=== PATIENT | female | born 1950 | race Caucasian/White ===

== ENCOUNTER 2016-06-07 18:56 | Observation (INO) | payer MEDICARE ==
[2016-06-07] MEDS ORDERED: SODIUM CHLORIDE 0.9% 500 ML IV STA (19:20)
[2016-06-07] MEDS ORDERED: DILTIAZEM 5 MG/ML 5 ML VIAL IVP STA (19:20)
[2016-06-07] MEDS ORDERED: SODIUM CHLORIDE 0.9% 1,000 ML IV STA (19:20)
[2016-06-07] MEDS ORDERED: DILTIAZEM 125 MG in SODIUM CHLORIDE 0.9% 100 ML IV ONE (19:30)
[2016-06-07] MEDS ORDERED: ASPIRIN 81 MG CHEW PO STA (20:25)
[2016-06-07] MEDS ORDERED: NITROGLYCERIN SL TABS 0.4 MG TAB SUBLINGUAL PRN (20:25)
--- NOTE | 2016-06-07 20:25 | ED ---
General Adult HPI - General Chief complaint: Arrhythmia/Palpitations Stated complaint: high heart rate Time Seen by Provider: 06/07/16 19:08 Source: patient, family, RN notes reviewed, old records reviewed Mode of arrival: wheelchair Limitations: no limitations - History of Present Illness Initial comments: This is a 66-year-old female to the ER today. Patient coming here for evaluation of rapid heart rate not feeling well. Patient does have history of high blood pressure and diabetes. No history of smoking. No chest pain or shortness of breath and family history no sick contacts no recent illness no diarrhea, no cough or congestion, patient has had episodes like this in the past but has never been with her fully evaluated. Patient denies drugs or alcohol. - Related Data Home Medications Medication Instructions Recorded Confirmed Allergy Relief Unknown Otc 1 tab PO DAILY PRN 06/07/16 06/07/16 Aspirin [Aspirin EC] 1,000 mg PO DAILY PRN 06/07/16 06/07/16 Atorvastatin [Lipitor] 10 mg PO DAILY 06/07/16 06/07/16 Canagliflozin [Invokana] 300 mg PO DAILY 06/07/16 06/07/16 Gemfibrozil [Lopid] 600 mg PO HS 06/07/16 06/07/16 Losartan/Hydrochlorothiazide 1 tab PO DAILY 06/07/16 06/07/16 [Losartan-Hctz 50-12.5 mg Tab] Multivits-Min/Iron/FA/Lutein 1 tab PO DAILY 06/07/16 06/07/16 [Centrum Silver Women Tablet] Omeprazole [PriLOSEC] 20 mg PO DAILY 06/07/16 06/07/16 Sodium Chloride [[place]] 2 spray EA NOSTRIL DAILY PRN 06/07/16 06/07/16 glipiZIDE XL [Glucotrol Xl] 5 mg PO DAILY 06/07/16 06/07/16 metFORMIN HCL [Glucophage] 1,500 mg PO HS 06/07/16 06/07/16 Allergies Allergy/AdvReac Type Severity Reaction Status Date / Time Sulfa (Sulfonamide Allergy Rash/Hives Verified 06/07/16 19:42 Antibiotics) Review of Systems ROS Statement: Those systems with pertinent positive or pertinent negative responses have been documented in the HPI. ROS Other: All systems not noted in ROS Statement are negative. Past Medical History Past Medical History: Diabetes Mellitus, Hypertension History of Any Multi-Drug Resistant Organisms: None Reported Past Psychological History: No Psychological Hx Reported Smoking Status: Never smoker Past Alcohol Use History: None Reported Past Drug Use History: None Reported General Exam Limitations: no limitations General appearance: anxious Head exam: Present: atraumatic, normocephalic, normal inspection Eye exam: Present: normal appearance, PERRL, EOMI. Absent: scleral icterus, conjunctival injection, periorbital swelling ENT exam: Present: normal exam, mucous membranes moist Neck exam: Present: normal inspection. Absent: tenderness, meningismus, lymphadenopathy Respiratory exam: Present: normal lung sounds bilaterally. Absent: respiratory distress, wheezes, rales, rhonchi, stridor Cardiovascular Exam: Present: tachycardia, irregular rhythm, normal heart sounds. Absent: systolic murmur, diastolic murmur, rubs, gallop, clicks GI/Abdominal exam: Present: soft, normal bowel sounds. Absent: distended, tenderness, guarding, rebound, rigid Extremities exam: Present: normal inspection, full ROM, normal capillary refill. Absent: tenderness, pedal edema, joint swelling, calf tenderness Back exam: Present: normal inspection Neurological exam: Present: alert, oriented X3, CN II-XII intact Psychiatric exam: Present: normal affect, normal mood Skin exam: Present: warm, dry, intact, normal color. Absent: rash Course Vital Signs 06/07/16 06/07/16 06/07/16 19:04 19:32 19:57 Temperature 98.5 F Pulse Rate 87 145 H Pulse Rate [ 124 H Apical] Respiratory 16 18 Rate Blood Pressure 174/86 151/69 O2 Sat by Pulse 96 94 L Oximetry - Reevaluation(s) Reevaluation #1: 06/07/16 20:23 Patient having improvement with rate control, no chest pain, no shortness of breath, mainly just feeling palpitations EKG Findings - EKG Comments: EKG Findings:: EKG shows A. fib with RVR rate 154, QRS 90, QTc 467 Medical Decision Making - Medical Decision Making 66 female the ER for evaluation FH her fibrillation, history of high blood pressure and diabetes will start on anticoagulation and admission for cardiology of observation. Patient does not have heart history no chest pain. Patient having difficult to control rate, put on Cardizem drip will admit to telemetry with serial troponins - Radiology Data Radiology results: report reviewed (Chest x-ray is negative for acute disease), image reviewed Critical Care Time Critical Care Time: Yes Total Critical Care Time: 31 Disposition Clinical Impression: Atrial fibrillation with RVR, New onset a-fib Disposition: ADMITTED IP TO THIS HOSP Condition: Good
[2016-06-07 20:39] LABS: Basophils # (A) 0.1 k/uL (0-0.2); Basophils % (A) 1 %; CHCM 35.2; Eosinophils # (A) 0.2 k/uL (0-0.7); Eosinophils % (A) 2 %; HCT 46.8 % (34.0-46.0); HDW 2.96; HGB 16.3 gm/dL (11.4-16.0); Luc # (Auto) 0.25; Luc % (Auto) 2; Lymphocytes % (A) 41 %; MCH 30.8 pg (25.0-35.0); MCHC 34.8 g/dL (31.0-37.0); MCV 88.6 fL (80.0-100.0); Mean Platelet Volume 8.5; Monocytes # (A) 0.7 k/uL (0-1.0); Monocytes % (A) 5 %; Neutrophils % (A) 49 %; RBC 5.28 m/uL (3.80-5.40); RDW 13.8 % (11.5-15.5); WBC 12.3 k/uL (3.8-10.6); WBC (Perox) 12.37
[2016-06-07 20:52] LABS: ALT 56 U/L (9-52); AST 59 U/L (14-36); Alkaline Phosphatase 93 U/L (38-126); Anion Gap 16 mmol/L; Blood Urea Nitrogen 18 mg/dL (7-17); Calcium 10.5 mg/dL (8.4-10.2); Carbon Dioxide 19 mmol/L (22-30); Chloride 105 mmol/L (98-107); Glucose 208 mg/dL (74-99); Magnesium 1.8 mg/dL (1.6-2.3); Non-African American GFR(MDRD) >60 (>60 ml/min/1.73 sqM); Phosphorous 4.3 mg/dL (2.5-4.5); Potassium 4.1 mmol/L (3.5-5.1); Sodium 140 mmol/L (137-145); Total Bilirubin 0.8 mg/dL (0.2-1.3)
[2016-06-07 20:59] LABS: Creatine Kinase 134 U/L (30-135)
[2016-06-07 21:12] LABS: Creatine Kinase MB 1.9 ng/mL (0.0-2.4); Troponin I <0.012 ng/mL (0.000-0.034)
[2016-06-07 21:40] LABS: INR 1.9 (<1.1); Partial Thromboplastin Time 23.3 sec (22.0-30.0); Prothrombin Time 18.4 sec (9.0-12.0)
[2016-06-08] MEDS: METOPROLOL TARTRATE 25 MG TAB PO SCH ×3 (00:02→21:33)
[2016-06-08] MEDS: GEMFIBROZIL 600 MG TAB PO SCH ×2 (00:04→21:33)
[2016-06-08] MEDS: ATORVASTATIN 10 MG TAB PO SCH ×2 (00:04→07:54)
[2016-06-08] MEDS: metFORMIN 500 MG TAB PO SCH ×2 (00:04→21:33)
[2016-06-08 02:41] LABS: Creatine Kinase MB 1.8 ng/mL (0.0-2.4); Troponin I 0.032 ng/mL (0.000-0.034)
[2016-06-08] MEDS: PANTOPRAZOLE 40 MG TABLET PO SCH (06:37)
[2016-06-08 06:53] LABS: Basophils # (A) 0.1 k/uL (0-0.2); Basophils % (A) 1 %; CH 30.8; CHCM 35.8; Eosinophils # (A) 0.3 k/uL (0-0.7); Eosinophils % (A) 3 %; HDW 3.11; HGB 14.4 gm/dL (11.4-16.0); Luc # (Auto) 0.25; Luc % (Auto) 3; Lymphocytes % (A) 44 %; MCH 30.4 pg (25.0-35.0); MCHC 35.2 g/dL (31.0-37.0); MCV 86.5 fL (80.0-100.0); Mean Platelet Volume 6.9; Monocytes # (A) 0.5 k/uL (0-1.0); Monocytes % (A) 5 %; Neutrophils # (A) 4.1 k/uL (1.3-7.7); Neutrophils % (A) 45 %; RBC 4.74 m/uL (3.80-5.40); RDW 13.7 % (11.5-15.5); WBC 9.2 k/uL (3.8-10.6)
[2016-06-08 07:21] LABS: ALT 45 U/L (9-52); AST 38 U/L (14-36); Alkaline Phosphatase 72 U/L (38-126); Anion Gap 12 mmol/L; Blood Urea Nitrogen 15 mg/dL (7-17); Calcium 9.4 mg/dL (8.4-10.2); Carbon Dioxide 21 mmol/L (22-30); Chloride 107 mmol/L (98-107); Cholesterol 153 mg/dL (<200); Glucose 151 mg/dL (74-99); HDL Cholesterol 23 mg/dL (40-60); Non-African American GFR(MDRD) >60 (>60 ml/min/1.73 sqM); Potassium 4.1 mmol/L (3.5-5.1); Sodium 140 mmol/L (137-145); Total Bilirubin 0.9 mg/dL (0.2-1.3); Total Protein 6.8 g/dL (6.3-8.2)
[2016-06-08 07:30] LABS: Troponin I 0.032 ng/mL (0.000-0.034)
[2016-06-08 07:43] LABS: Triglycerides 538 mg/dL (<150)
[2016-06-08] MEDS: LOSARTAN-HCTZ 50-12.5 MG 1 EACH TAB PO SCH (07:53)
[2016-06-08] MEDS ORDERED: NON-FORMULARY DRUG (Canagliflozin [Invokana] 300 MG) PO SCH (09:00)
[2016-06-08] MEDS ORDERED: ASPIRIN 325 MG TAB PO SCH (09:00)
--- NOTE | 2016-06-08 10:08 | P.CRDCN ---
History of Present Illness Consult date: 06/08/16 Requesting physician: Richard Sharma Consult reason: atrial fibrillation Chief complaint: Palpitations History of present illness: This is a 66-year-old female who follows with Dr. Florence in the office. She has a known history of hypertension, hyperlipidemia, diabetes. She states that yesterday she was scraping wallpaper off in one of her rooms, all of a sudden she states she just did not feel well so she sat down. She again started to work on her wallpaper and similar symptoms returned. Her daughter who is an RN it checked her heart rate and blood pressure, heart rate was up in the 150s and was quite irregular. For this reason she came to the emergency room for further evaluation. EKG on arrival here showed atrial flutter with rapid ventricular response. Blood pressure on arrival 174/86 with a heart rate of 140. 94% on room air. WBC on arrival 12.3, hemoglobin 16.3, platelet count 172. Potassium 4.1, BUN 15, creatinine 0.4. Troponin on arrival here 0.012, 0.032, 0.032. TSH level normal. Patient states that she has been told to have an irregular heartbeat several years ago. She also states that she gets this abnormal feeling with associated palpitations off and on. According to the patient approximately one week ago, she also had some visual disturbance in her left eye, lasted only a few seconds and dissipated, she had this episode twice. At the time of my examination this morning patient is currently in a normal sinus rhythm, denies any chest pain, no palpitations, no dizziness or lightheadedness. She was not initiated on anticoagulation. Patient was on a Cardizem drip which was discontinued this morning. No chest x- ray performed. Past Medical History Past Medical History: Atrial Fibrillation, Diabetes Mellitus, Hyperlipidemia, Hypertension, Sleep Apnea/CPAP/BIPAP History of Any Multi-Drug Resistant Organisms: None Reported Additional Past Surgical History / Comment(s): left breat biospy Past Psychological History: No Psychological Hx Reported Smoking Status: Never smoker Past Alcohol Use History: None Reported Past Drug Use History: None Reported - Past Family History Mother Additional Family Medical History / Comment(s): pancreatic cancer Father Family Medical History: No Reported History Medications and Allergies Home Medications Medication Instructions Recorded Confirmed Type Allergy Relief Unknown Otc 1 tab PO DAILY PRN 06/07/16 06/07/16 History Aspirin [Aspirin EC] 1,000 mg PO DAILY PRN 06/07/16 06/07/16 History Atorvastatin [Lipitor] 10 mg PO DAILY 06/07/16 06/07/16 History Canagliflozin [Invokana] 300 mg PO DAILY 06/07/16 06/07/16 History Gemfibrozil [Lopid] 600 mg PO HS 06/07/16 06/07/16 History Losartan/Hydrochlorothiazide 1 tab PO DAILY 06/07/16 06/07/16 History [Losartan-Hctz 50-12.5 mg Tab] Multivits-Min/Iron/FA/Lutein 1 tab PO DAILY 06/07/16 06/07/16 History [Centrum Silver Women Tablet] Omeprazole [PriLOSEC] 20 mg PO DAILY 06/07/16 06/07/16 History Sodium Chloride [[place]] 2 spray EA NOSTRIL DAILY PRN 06/07/16 06/07/16 History glipiZIDE XL [Glucotrol Xl] 5 mg PO DAILY 06/07/16 06/07/16 History metFORMIN HCL [Glucophage] 1,500 mg PO HS 06/07/16 06/07/16 History Allergies Allergy/AdvReac Type Severity Reaction Status Date / Time Sulfa (Sulfonamide Allergy Rash/Hives Verified 06/07/16 19:42 Antibiotics) Physical Exam Vitals: Vital Signs Temp Pulse Pulse Resp BP BP Pulse Ox 06/08/16 07:57 78 18 06/08/16 07:22 97.9 F 78 18 112/60 06/08/16 04:00 96.3 F L 76 16 117/66 92 L 06/08/16 01:33 97.0 F L 84 18 113/77 84 L 06/07/16 22:15 98.1 F 99 16 121/63 95 06/07/16 21:30 98.1 F 99 18 121/73 96 06/07/16 20:34 122 H 16 146/71 95 Intake and Output 06/07/16 06/08/16 06/08/16 22:59 06:59 14:59 Intake Total 180 Balance 180 Intake: Oral 180 Other: Voiding Method Toilet Toilet Toilet Weight 83.3 kg PHYSICAL EXAMINATION: HEENT: [Head is atraumatic, normocephalic. Pupils equal, round. Neck is supple. There is no elevated jugular venous pressure.] HEART EXAMINATION: [Heart S1, S2 normal. No murmur or gallop heard.] CHEST EXAMINATION:[ Lungs are clear to auscultation and precussion. No chest wall tenderness is noted on palpation or with deep breathing.] ABDOMEN: [ Soft, nontender. Bowel sounds are heard. No organomegaly noted]. EXTREMITIES:[ 2+ peripheral pulses with no evidence of peripheral edema and no calf tenderness noted]. NEUROLOGIC [patient is awake, alert and oriented -3.] . Results 06/08/16 06:21 06/08/16 06:21 Cardiac Enzymes 06/08/16 06/08/16 06/08/16 Range/Units 01:38 06:21 06:21 AST 38 H (14-36) U/L CK-MB (CK-2) 1.8 2.0 (0.0-2.4) ng/mL Troponin I 0.032 0.032 (0.000-0.034) ng/mL Lipids 06/08/16 Range/Units 06:21 Triglycerides 538 H (<150) mg/dL Cholesterol 153 (<200) mg/dL HDL Cholesterol 23 L (40-60) mg/dL CBC 06/08/16 Range/Units 06:21 WBC 9.2 (3.8-10.6) k/uL RBC 4.74 (3.80-5.40) m/uL Hgb 14.4 (11.4-16.0) gm/dL Hct 41.0 (34.0-46.0) % Plt Count 202 (150-450) k/uL Comprehensive Metabolic Panel 06/08/16 Range/Units 06:21 Sodium 140 (137-145) mmol/L Potassium 4.1 (3.5-5.1) mmol/L Chloride 107 (98-107) mmol/L Carbon Dioxide 21 L (22-30) mmol/L BUN 15 (7-17) mg/dL Creatinine 0.44 L (0.52-1.04) mg/dL Glucose 151 H (74-99) mg/dL Calcium 9.4 (8.4-10.2) mg/dL AST 38 H (14-36) U/L ALT 45 (9-52) U/L Alkaline Phosphatase 72 (38-126) U/L Total Protein 6.8 (6.3-8.2) g/dL Albumin 4.0 (3.5-5.0) g/dL Current Medications Generic Name Dose Route Start Last Admin Trade Name Freq PRN Reason Stop Dose Admin Apixaban 5 mg 06/08/16 10:00 Eliquis PO BID [facility] Aspirin 81 mg 06/09/16 09:00 Aspirin PO DAILY [facility] Atorvastatin Calcium 10 mg 06/07/16 23:30 06/08/16 07:54 Lipitor PO 10 mg DAILY CARLA Administration Gemfibrozil 600 mg 06/07/16 23:30 06/08/16 00:04 Lopid PO 600 mg HS CARLA Administration Glipizide 2.5 mg 06/08/16 07:30 06/08/16 06:37 Glucotrol PO 2.5 mg AC-BID CARLA Administration HCTZ/Losartan Potassium 1 each 06/08/16 09:00 06/08/16 07:53 Hyzaar 50-12.5 PO 1 each DAILY [facility] Administration Metformin HCl 1,500 mg 06/07/16 23:30 06/08/16 00:04 Glucophage PO 1,500 mg HS [facility] Administration Metoprolol Tartrate 25 mg 06/07/16 22:00 06/08/16 07:54 Lopressor PO 25 mg BID CARLA Administration Multivitamins 1 each 06/08/16 12:00 Theragran PO DAILY@1200 [facility] Nitroglycerin 0.4 mg 06/07/16 20:25 Nitrostat SUBLINGUAL Q5M PRN Chest Pain Non-Formulary Medication 300 mg 06/08/16 09:00 Canagliflozin [Invokana] PO DAILY [facility] Pantoprazole Sodium 40 mg 06/08/16 07:30 06/08/16 06:37 Protonix PO 40 mg [id number] CARLA Administration Intake and Output 06/07/16 06/08/16 06/08/16 22:59 06:59 14:59 Intake Total 180 Balance 180 Intake: Oral 180 Other: Voiding Method Toilet Toilet Toilet Weight 83.3 kg 06/08/16 06:21 06/08/16 06:21 EKG Interpretations (text) EKG on admission showed atrial fibrillation/flutter with rapid ventricular response, EKG performed this morning shows normal sinus rhythm. Assessment and Plan Plan: Assessment and plan #1 atrial fibrillation, paroxysmal in nature. Now in normal sinus rhythm her TSH level normal #2 diabetes #3 hypertension #4 hyperlipidemia Plan We will obtain an echocardiogram with Doppler study. We will also check to see if the patient has coverage for one of the newer anticoagulants, initiate the patient on Eliquis 5 mg one tablet by mouth twice a day. Patient's CHAdsvasc Score is 4 places the patient at 8.5% stroke risk. Patient was educated regarding the importance of being on anticoagulation for stroke prevention. Lopressor 25 twice a day was added to the patient's medication regime. Further recommendations to follow. DNP note has been reviewed, I agree with a documented findings and plan of care. Patient was seen and examined.
--- NOTE | 2016-06-08 10:32 | ECHOF ---
Referral Reason:new onset afib rvr MEASUREMENTS -------- HEIGHT: 165.1 cm WEIGHT: 81.6 kg BP: 117/66 IVSd: 1.2 cm (0.6 - 1.1) LVIDd: 3.8 cm (3.9 - 5.3) LVPWd: 1.3 cm (0.6 - 1.1) IVSs: 1.7 cm LVIDs: 1.9 cm LVPWs: 1.3 cm LAESV Index (A-L): 41.08 ml/m IVSd: 3.1 cm (0.6 - 1.1) LVIDd: 0.0 cm (3.9 - 5.3) EDV(Teich): 0 ml Ao Diam: 3.1 cm (2.0 - 3.7) AV Cusp: 2.3 cm (1.5 - 2.6) LA Diam: 3.6 cm (2.7 - 3.8) MV EXCURSION: 9.718 mm (> 18.000) MV EF SLOPE: 49 mm/s (70 - 150) EPSS: 0.4 cm MV E Arturo: 1.25 m/s MV DecT: 264 ms MV A Arturo: 1.18 m/s MV E/A Ratio: 1.06 RAP: 5.00 mmHg RVSP: 37.34 mmHg FINDINGS -------- Sinus rhythm. This was a technically good study. There is mild concentric left ventricular hypertrophy. Overall left ventricular systolic function is normal with, an EF between 55 - 60 %. The right ventricle is normal in size and function. LA is severely dilated >40 ml/m2 The right atrium is normal in size. Aortic valve is trileaflet and is mildly thickened. The mitral valve leaflets are mildly thickened. Mild mitral annular calcification present. There is trace mitral regurgitation. Mild tricuspid regurgitation present. The right ventricular systolic pressure, as measured by Doppler, is 37.34mmHg. Pulmonic valve appears structurally normal. The aortic root size is normal. The pericardium is normal. CONCLUSIONS -------- 1. Sinus rhythm. 2. Mild mitral annular calcification present. 3. There is trace mitral regurgitation. 4. Mild tricuspid regurgitation present. 5. The right ventricular systolic pressure, as measured by Doppler, is 37.34mmHg. 6. Pulmonic valve appears structurally normal. 7. The aortic root size is normal. 8. The pericardium is normal. 9. This was a technically good study. 10. There is mild concentric left ventricular hypertrophy. 11. Overall left ventricular systolic function is normal with, an EF between 55 - 60 %. 12. The right ventricle is normal in size and function. 13. LA is severely dilated >40 ml/m2 14. The right atrium is normal in size. 15. Aortic valve is trileaflet and is mildly thickened. 16. The mitral valve leaflets are mildly thickened. EMR SPECIALIST: Antonella Recio RDCS
[2016-06-08] MEDS: APIXABAN 5 MG TAB PO SCH ×2 (11:18→22:36)
[2016-06-08] MEDS: MULTIVITAMINS, THERA 1 EACH TAB PO SCH (11:38)
[2016-06-08 17:05] LABS: Glucose,Whole Blood 155 mg/dL (75-99)
--- NOTE | 2016-06-08 17:15 | P.HPIM ---
History of Present Illness H&P Date: 06/08/16 Chief Complaint: Palpitations irregular heartbeat lightheadedness This is a pleasant 66-year-old lady patient of Dr. Garcias, he has underlying history of diabetes mellitus type 2, obstructive sleep apnea not compliant on CPAP machine, hypertension, hyperlipidemia patient was seen in emergency room secondary to new onset atrial flutter, atrial fibrillation with rapid ventricular rate. She presented initially with lightheadedness and dizziness which was occurring while she was putting up a wallpaper, patient rested at that time she felt better, and again she went back on her wallpapering, patient again has symptoms of weakness, her nurse daughter who lives with her checked her heart rate and was noted to be in the 140s with irregular heart rate. Patient was subsequently seen in the emergency room and was noted to be in atrial flutter heart rate in the 140s, EKG shows nonspecific EKG changes,she was started on IV Cardizem, andand thereafter converted to normal sinus rhythm patient is currently be seen by cardiology, she needs to be anticoagulated long -term, her [id number] score is 4. Patient denies any chest pain no problem other syncopal events, no motor or other neurologic deficits Review of Systems Constitutional: Reports as per HPI, Denies anorexia, Denies chills, Denies chronic headaches, Denies chronic pain, Denies daytime sleepiness, Denies fatigue, Denies fever, Denies lethargy, Denies malaise, Denies night sweats, Denies poor appetite, Denies sweats, Denies weakness, Denies weight gain, Denies weight loss Ears, nose, mouth and throat: Reports as per HPI, Denies ant. neck pain, Denies bleeding gums, Denies dental pain, Denies dysphagia, Denies epistaxis, Denies headache, Denies hoarseness, Denies mouth pain, Denies nasal congestion, Denies nasal discharge, Denies neck fullness/pressure, Denies neck lump, Denies nose pain, Denies odynophagia, Denies post-nasal drip, Denies sinus pain, Denies sinus pressure, Denies swelling in mouth, Denies swelling in throat, Denies sore throat, Denies vertigo, Denies voice changes Cardiovascular: Reports as per HPI, Reports palpitations, Reports rapid heart beat, Denies chest pain, Denies claudication, Denies decreased exercise tolerance, Denies dyspnea on exertion, Denies edema, Denies high blood pressure , Denies irregular heart beat, Denies leg edema, Denies lightheadedness, Denies orthopnea, Denies paroxysmal nocturnal dyspnea, Denies phlebitis, Denies shortness of breath, Denies syncope Respiratory: Reports as per HPI, Denies congestion, Denies cough, Denies cough with sputum, Denies dyspnea, Denies excessive sputum, Denies hemoptysis, Denies home oxygen, Denies pain, Denies pain on inspiration, Denies pleurisy, Denies respiratory infections, Denies sleep apnea, Denies snoring, Denies wheezing Gastrointestinal: Reports as per HPI, Denies abdominal pain, Denies belching, Denies bloating, Denies BRBPR, Denies change in bowel habits, Denies coffee ground emesis, Denies constipation, Denies diarrhea, Denies dyspepsia, Denies early satiety, Denies excessive gas, Denies heartburn, Denies hematemesis, Denies hematochezia, Denies indigestion, Denies jaundice, Denies lactose intolerance, Denies loss of appetite, Denies melena, Denies nausea, Denies vomiting Genitourinary: Reports as per HPI, Denies abnormal vaginal bleeding, Denies decreased libido, Denies difficulty conceiving, Denies difficulty voiding, Denies dysmenorrhea, Denies dyspareunia, Denies dysuria, Denies flank pain, Denies genital sores, Denies hematuria, Denies hot flashes, Denies incomplete emptying, Denies kidney stones, Denies menorrhagia, Denies mixed incontinence, Denies nocturia, Denies pelvic pain, Denies post void dribbling, Denies , Denies prolapse symptoms, Denies stress incontinence, Denies urge incontinence , Denies urgency, Denies urinary frequency, Denies vaginal discharge, Denies vaginal dryness, Denies vaginal itching, Denies vaginal odor Menstruation: Reports as per HPI, Denies amenorrhea, Denies amenorrhea on BC, Denies currently menstrual, Denies cycle < 21 days, Denies cycle > 35 days, Denies cycle variable, Denies menses 1-7 days, Denies menses 8 or > days, Denies menses variable, Denies period heavy, Denies period light, Denies period normal, Denies period spotting, Denies post hysterectomy, Denies postmenopausal , Denies premenarcheal Musculoskeletal: Reports as per HPI, Denies arm numbness/tingling, Denies atrophy, Denies fractures, Denies frequent falls, Denies gait dysfunction, Denies hot joints, Denies leg numbness/tingling, Denies limitation of motion, Denies loss of height, Denies low back pain, Denies morning stiffness, Denies muscle cramps, Denies muscle weakness, Denies myalgias, Denies neck pain, Denies neck stiffness, Denies prior amputations, Denies redness of joints, Denies shooting arm pain, Denies shooting leg pain Integumentary: Reports as per HPI, Denies acne, Denies boils, Denies brittle nails, Denies change in hair/nails, Denies color changes, Denies darkening of skin, Denies depigmentation, Denies dryness, Denies foot/leg ulcers, Denies growths, Denies hirsutism, Denies lesions, Denies onychomycosis, Denies pruritus , Denies rash, Denies sores, Denies striae, Denies unusual bruising, Denies wounds Neurological: Reports as per HPI, Denies aphasia, Denies ataxia, Denies balance difficulties, Denies burning pain, Denies change in mentation, Denies change in smell/taste, Denies change in speech, Denies confusion, Denies convulsions, Denies double vision, Denies gait dysfunction, Denies head injury, Denies headaches, Denies hearing difficulties, Denies lack of coordination, Denies loss of vision, Denies memory loss, Denies migraines, Denies motor disturbance, Denies numbness, Denies paralysis, Denies paresthesias, Denies seizures, Denies sensory deficit, Denies spasticity, Denies syncope, Denies tic, Denies tingling , Denies transient paralysis, Denies tremors, Denies vertigo, Denies weakness, Denies visual changes Psychiatric: Reports as per HPI, Denies anhedonia, Denies anxiety, Denies anxiety attacks, Denies change in appetite, Denies change in libido, Denies change in sleep habits, Denies confusion, Denies depression, Denies difficulty concentrating, Denies disorientation, Denies hallucinations, Denies hopelessness , Denies hypersomnia, Denies insomnia, Denies irritability, Denies memory loss, Denies mood swings, Denies paranoia, Denies sadness/tearfulness, Denies sleep disturbances, Denies suicidal ideation Endocrine: Reports as per HPI, Denies cold intolerance, Denies deepening of the voice, Denies excessive sweating, Denies excessive thirst, Denies fatigue, Denies flushing, Denies heat intolerance, Denies high blood sugars, Denies increase in ring/shoe/hat size, Denies low blood sugars, Denies nocturia, Denies palpitations, Denies polydipsia, Denies polyphagia, Denies polyuria, Denies proptosis, Denies recent glucocorticoid use, Denies thyroid mass, Denies weight change Hematologic/Lymphatic: Reports as per HPI, Denies easy bleeding, Denies easy bruising, Denies lymphadenopathy, Denies lymphedema, Denies thrombophilia Allergic/Immunologic: Reports as per HPI, Denies allergic rhinitis, Denies anaphylaxis, Denies angioedema, Denies gluten intolerance, Denies persistent infections, Denies seasonal allergies, Denies urticaria, Denies wheezing Past Medical History Past Medical History: Atrial Fibrillation, Diabetes Mellitus, Hyperlipidemia, Hypertension, Sleep Apnea/CPAP/BIPAP History of Any Multi-Drug Resistant Organisms: None Reported Additional Past Surgical History / Comment(s): left breat biospy Past Psychological History: No Psychological Hx Reported Smoking Status: Never smoker Past Alcohol Use History: None Reported Past Drug Use History: None Reported - Past Family History Mother Additional Family Medical History / Comment(s): pancreatic cancer Father Family Medical History: No Reported History Medications and Allergies Home Medications Medication Instructions Recorded Confirmed Type Allergy Relief Unknown Otc 1 tab PO DAILY PRN 06/07/16 06/07/16 History Aspirin [Aspirin EC] 1,000 mg PO DAILY PRN 06/07/16 06/07/16 History Atorvastatin [Lipitor] 10 mg PO DAILY 06/07/16 06/07/16 History Canagliflozin [Invokana] 300 mg PO DAILY 06/07/16 06/07/16 History Gemfibrozil [Lopid] 600 mg PO HS 06/07/16 06/07/16 History Losartan/Hydrochlorothiazide 1 tab PO DAILY 06/07/16 06/07/16 History [Losartan-Hctz 50-12.5 mg Tab] Multivits-Min/Iron/FA/Lutein 1 tab PO DAILY 06/07/16 06/07/16 History [Centrum Silver Women Tablet] Omeprazole [PriLOSEC] 20 mg PO DAILY 06/07/16 06/07/16 History Sodium Chloride [Crockett] 2 spray EA NOSTRIL DAILY PRN 06/07/16 06/07/16 History glipiZIDE XL [Glucotrol Xl] 5 mg PO DAILY 06/07/16 06/07/16 History metFORMIN HCL [Glucophage] 1,500 mg PO HS 06/07/16 06/07/16 History Allergies Allergy/AdvReac Type Severity Reaction Status Date / Time Sulfa (Sulfonamide Allergy Rash/Hives Verified 06/07/16 19:42 Antibiotics) Physical Exam Vitals: Vital Signs Temp Pulse Pulse Resp BP BP Pulse Ox 06/08/16 11:15 68 17 103/63 94 L 06/08/16 07:57 78 18 06/08/16 07:22 97.9 F 78 18 112/60 06/08/16 04:00 96.3 F L 76 16 117/66 92 L 06/08/16 01:33 97.0 F L 84 18 113/77 84 L 06/07/16 22:15 98.1 F 99 16 121/63 95 06/07/16 21:30 98.1 F 99 18 121/73 96 06/07/16 20:34 122 H 16 146/71 95 Intake and Output 06/07/16 06/08/16 06/08/16 22:59 06:59 14:59 Intake Total 180 Balance 180 Intake: Oral 180 Other: Voiding Method Toilet Toilet Toilet Weight 83.3 kg - Constitutional General appearance: no average body habitus, cooperative, no disheveled, no mild distress, no morbidly obese, no acute distress, obese, no severe distress, no thin - EENT Eyes: anicteric sclerae, EOMI, PERRLA, dentition normal, normal appearance ENT: no hard of hearing, hearing grossly normal, NA/AT, normal oropharynx, no other, no pharyngeal erythema, no thrush, no tonsillar exudates, no tonsillar swelling - Neck Neck: no lymphadenopathy, normal ROM, no other, no rigidity, no stridor, no thyromegaly - Respiratory Respiratory: bilateral: CTA, negative: diminished, dullness, rales, rhonchi, wheezing - Cardiovascular Rhythm: regular Heart sounds: normal: S1, S2 Abnormal Heart Sounds: no systolic murmur, no diastolic murmur, no rub, no S3 Gallop, no S4 Gallop, no click, no other - Gastrointestinal General gastrointestinal: normal bowel sounds, soft - Integumentary Integumentary: normal, normal turgor - Neurologic Neurologic: CNII-XII intact - Musculoskeletal Musculoskeletal: gait normal, strength equal bilaterally - Psychiatric Psychiatric: A&O x's 3, appropriate affect, intact judgment & insight Results CBC & Chem 7: 06/08/16 06:21 06/08/16 06:21 Labs: Abnormal Lab Results - Last 24 Hours (Table) 06/08/16 Range/Units 06:21 Carbon Dioxide 21 L (22-30) mmol/L Creatinine 0.44 L (0.52-1.04) mg/dL Glucose 151 H (74-99) mg/dL AST 38 H (14-36) U/L Triglycerides 538 H (<150) mg/dL HDL Cholesterol 23 L (40-60) mg/dL Comments: Laboratory Results WBC 9.2 k/uL (3.8-10.6) 06/08/16 06:21 RBC 4.74 m/uL (3.80-5.40) 06/08/16 06:21 Hgb 14.4 gm/dL (11.4-16.0) 06/08/16 06:21 Hct 41.0 % (34.0-46.0) 06/08/16 06:21 MCV 86.5 fL (80.0-100.0) 06/08/16 06:21 MCH 30.4 pg (25.0-35.0) 06/08/16 06:21 MCHC 35.2 g/dL (31.0-37.0) 06/08/16 06:21 RDW 13.7 % (11.5-15.5) 06/08/16 06:21 Plt Count 202 k/uL (150-450) 06/08/16 06:21 Neutrophils % 45 % 06/08/16 06:21 Lymphocytes % 44 % 06/08/16 06:21 Monocytes % 5 % 06/08/16 06:21 Eosinophils % 3 % 06/08/16 06:21 Basophils % 1 % 06/08/16 06:21 Neutrophils # 4.1 k/uL (1.3-7.7) 06/08/16 06:21 Lymphocytes # 4.0 k/uL (1.0-4.8) 06/08/16 06:21 Monocytes # 0.5 k/uL (0-1.0) 06/08/16 06:21 Eosinophils # 0.3 k/uL (0-0.7) 06/08/16 06:21 Basophils # 0.1 k/uL (0-0.2) 06/08/16 06:21 PT 18.4 sec (9.0-12.0) H 06/07/16 19:25 INR 1.9 (<1.1) 06/07/16 19:25 APTT 23.3 sec (22.0-30.0) 06/07/16 19:25 Sodium 140 mmol/L (137-145) 06/08/16 06:21 Potassium 4.1 mmol/L (3.5-5.1) 06/08/16 06:21 Chloride 107 mmol/L (98-107) 06/08/16 06:21 Carbon Dioxide 21 mmol/L (22-30) L 06/08/16 06:21 Anion Gap 12 mmol/L 06/08/16 06:21 BUN 15 mg/dL (7-17) 06/08/16 06:21 Creatinine 0.44 mg/dL (0.52-1.04) L 06/08/16 06:21 Est GFR (MDRD) Af Amer >60 (>60 ml/min/1.73 sqM) 06/08/16 06:21 Est GFR (MDRD) Non-Af >60 (>60 ml/min/1.73 sqM) 06/08/16 06:21 Glucose 151 mg/dL (74-99) H 06/08/16 06:21 POC Glucose (mg/dL) 155 mg/dL (75-99) H 06/08/16 17:03 POC Glu Medical Scheduler ID Marshall, Anu 06/08/16 17:03 Calcium 9.4 mg/dL (8.4-10.2) 06/08/16 06:21 Phosphorus 4.3 mg/dL (2.5-4.5) 06/07/16 19:25 Magnesium 1.8 mg/dL (1.6-2.3) 06/07/16 19:25 Total Bilirubin 0.9 mg/dL (0.2-1.3) 06/08/16 06:21 AST 38 U/L (14-36) H 06/08/16 06:21 ALT 45 U/L (9-52) 06/08/16 06:21 Alkaline Phosphatase 72 U/L (38-126) 06/08/16 06:21 Total Creatine Kinase 112 U/L (30-135) 06/08/16 06:21 CK-MB (CK-2) 2.0 ng/mL (0.0-2.4) 06/08/16 06:21 CK-MB (CK-2) Rel Index 1.8 06/08/16 06:21 Troponin I 0.032 ng/mL (0.000-0.034) 06/08/16 06:21 Total Protein 6.8 g/dL (6.3-8.2) 06/08/16 06:21 Albumin 4.0 g/dL (3.5-5.0) 06/08/16 06:21 Triglycerides 538 mg/dL (<150) H 06/08/16 06:21 Cholesterol 153 mg/dL (<200) 06/08/16 06:21 LDL Cholesterol, Calc mg/dL (0-99) 06/08/16 06:21 HDL Cholesterol 23 mg/dL (40-60) L 06/08/16 06:21 TSH 1.660 mIU/L (0.465-4.680) 06/07/16 19:25 Thrombosis Risk Factor Assmnt - Choose All That Apply Any of the Below Risk Factors Present?: No Each Risk Factor Represents 2 Points: Age 61-74 years Thrombosis Risk Factor Assessment Total Risk Factor Score: 2 Thrombosis Risk Factor Assessment Level: Low Risk Assessment and Plan Plan: 1. New onset atrial flutter/atrial fibrillation with rapid ventricular rate, required IV Cardizem in the emergency room, she converted back to normal sinus rhythm, patient would need to be on long-term anticoagulation secondary to her chads 2 fast score of 4, has an increased risk of CVA related to her atrial fibrillation, cardiology is currently following, factor X A inhibitors are appropriate for this patient depending on her insurance company one of them will be started during this admission to be transitioned for home use. Beta xin started 2. 2. Diabetes mellitus type 2, on oral agents, patient would have Accu-Cheks , and appropriate A1c can be done as an outpatient for routine surveillance 3. Obstructive sleep apnea not on CPAP device, patient was counseled regarding compliance to the appropriate use, patient also was counseled that a repeat sleep study can be done and a new machine can be provided this could be done as an outpatient for out the titration CPAP machine 4. Left atrial enlargement over 40 mL per M2, EF 55-60%, right ventricle systolic pressure of 37, mild LA, mild MR and aortic valve trileaflet mildly thickened 5. Hyperlipidemia on Lipitor 10 no changes made continue on low. 6. BMI of 30 patient was counseled regarding lifestyle changes and appropriate weight loss program 7. Hypertensive cardiovascular disease on losartan HCTZ 50/12.5 one daily GERD on maintenance Prilosec 20 mg daily
[2016-06-08 21:06] LABS: Glucose,Whole Blood 221 mg/dL (75-99)
[2016-06-09 00:16] VITALS: RESP 16
[2016-06-09 06:17] LABS: Glucose,Whole Blood 163 mg/dL (75-99)
[2016-06-09] MEDS: PANTOPRAZOLE 40 MG TABLET PO SCH (06:53)
[2016-06-09 07:02] LABS: Basophils # (A) 0.2 k/uL (0-0.2); Basophils % (A) 2 %; CH 30.5; CHCM 34.5; Eosinophils # (A) 0.4 k/uL (0-0.7); Eosinophils % (A) 4 %; HCT 44.2 % (34.0-46.0); HDW 2.99; HGB 14.8 gm/dL (11.4-16.0); Luc # (Auto) 0.25; Luc % (Auto) 3; Lymphocytes # (A) 4.5 k/uL (1.0-4.8); Lymphocytes % (A) 46 %; MCH 29.8 pg (25.0-35.0); MCHC 33.5 g/dL (31.0-37.0); MCV 88.9 fL (80.0-100.0); Monocytes # (A) 0.4 k/uL (0-1.0); Monocytes % (A) 4 %; Neutrophils % (A) 41 %; RBC 4.97 m/uL (3.80-5.40); RDW 13.7 % (11.5-15.5); WBC 9.8 k/uL (3.8-10.6); WBC (Perox) 9.89
[2016-06-09 07:23] VITALS: TEMP 97.8
[2016-06-09] MEDS: ATORVASTATIN 10 MG TAB PO SCH (07:24)
[2016-06-09] MEDS: APIXABAN 5 MG TAB PO SCH (07:24)
[2016-06-09] MEDS: LOSARTAN-HCTZ 50-12.5 MG 1 EACH TAB PO SCH (07:24)
[2016-06-09] MEDS: METOPROLOL TARTRATE 25 MG TAB PO SCH (07:24)
[2016-06-09 07:37] LABS: Anion Gap 13 mmol/L; Blood Urea Nitrogen 15 mg/dL (7-17); Calcium 9.7 mg/dL (8.4-10.2); Carbon Dioxide 25 mmol/L (22-30); Chloride 101 mmol/L (98-107); Glucose 160 mg/dL (74-99); Non-African American GFR(MDRD) >60 (>60 ml/min/1.73 sqM); Potassium 4.3 mmol/L (3.5-5.1); Sodium 139 mmol/L (137-145)
[2016-06-09] MEDS ORDERED: ASPIRIN 81 MG CHEW PO SCH (09:00)
[2016-06-09] MEDS: MULTIVITAMINS, THERA 1 EACH TAB PO SCH (11:05)
[2016-06-09 11:09] VITALS: BP 122/65; PULSE 70
[2016-06-09 11:49] LABS: Glucose,Whole Blood 140 mg/dL (75-99)
--- NOTE | 2016-06-09 12:20 | P.PN ---
Subjective Principal diagnosis: Atrial fibrillation This is a pleasant 66-year-old female patient with a past medical history significant for diabetes, hypertension, dyslipidemia presented to the emergency room complaining of not feeling well. The patient has been experiencing heart racing and fluttering. Also she had some visual disturbance. She was found to be in A. fib with RVR and she was started on Cardizem drip and converted to normal sinus mechanism and she has been maintaining normal sinus mechanism. She underwent an echocardiogram which showed normal ventricular systolic function without any significant valvular abnormalities. The patient was started on metoprolol and also she was started on oral anticoagulation using Eliquis. Objective - Vital Signs Vital signs: Vital Signs Temp 97.8 F 06/09/16 07:23 Pulse 70 06/09/16 11:09 Resp 16 06/09/16 11:09 BP 122/65 06/09/16 11:09 Pulse Ox 97 06/09/16 11:09 Intake & Output 06/08/16 06/09/16 06/09/16 18:59 06:59 18:59 Intake Total 718 240 Balance 718 240 Weight 118.8 kg Intake: Oral 718 240 Other: Voiding Method Toilet Toilet Toilet # Voids 2 - Constitutional General appearance: Present: no acute distress - Respiratory Respiratory: bilateral: CTA - Cardiovascular Rhythm: regular Heart sounds: normal: S1, S2 - Labs CBC & Chem 7: 06/09/16 06:15 06/09/16 06:15 Labs: Abnormal Lab Results - Last 24 Hours (Table) 06/08/16 06/08/16 06/09/16 Range/Units 17:03 21:04 06:15 Glucose 160 H (74-99) mg/dL POC Glucose (mg/dL) 155 H 221 H (75-99) mg/dL 06/09/16 06/09/16 Range/Units 06:15 11:37 Glucose (74-99) mg/dL POC Glucose (mg/dL) 163 H 140 H (75-99) mg/dL Assessment and Plan Plan: Assessment Paroxysmal atrial fibrillation Multiple comorbid conditions including diabetes, hypertension, dyslipidemia Plan The patient has been maintaining normal sinus mechanism We'll continue the current medical treatment with metoprolol and Eliquis.
--- NOTE | 2016-06-09 12:35 | P.DS ---
Providers Date of admission: 06/07/16 20:25 Expected date of discharge: 06/09/16 Attending physician: Richard Sharma Primary care physician: [facility] Course: This is a pleasant 66-year-old lady patient of Dr. Garcias, he has underlying history of diabetes mellitus type 2, obstructive sleep apnea not compliant on CPAP machine, hypertension, hyperlipidemia patient was seen in emergency room secondary to new onset atrial flutter, atrial fibrillation with rapid ventricular rate. She presented initially with lightheadedness and dizziness which was occurring while she was putting up a wallpaper, patient rested at that time she felt better, and again she went back on her wallpapering, patient again has symptoms of weakness, her nurse daughter who lives with her checked her heart rate and was noted to be in the 140s with irregular heart rate. Patient was subsequently seen in the emergency room and was noted to be in atrial flutter heart rate in the 140s, EKG shows nonspecific EKG changes,she was started on IV Cardizem, andand thereafter converted to normal sinus rhythm patient is currently be seen by cardiology, she needs to be anticoagulated long -term, her [id number] score is 4. Patient denies any chest pain no problem other syncopal events, no motor or other neurologic deficits 5/5: Patient has been seen by box maker paperboard with recommendations for eliquis 5 mg twice daily. She is on Lopressor 25 mg twice daily. Echocardiogram reveals EF 55-60%, trace mitral regurgitation, mild tricuspid regurgitation, mild concentric left ventricular hypertrophy, LA severely dilated greater than 40. She is currently in a sinus rhythm running in the 60s and 70s. Patient has been cleared for discharge by cardiology. Patient will be discharged home today in stable condition. Discharge diagnoses: 1. New onset atrial , paroxysmal 2. Diabetes mellitus type 2 3. Obstructive sleep apnea not on CPAP device, patient was counseled regarding compliance 4. Left atrial enlargement over 40 mL per M2, EF 55-60%, right ventricle systolic pressure of 37, mild FL, mild MR and aortic valve trileaflet mildly thickened 5. Hyperlipidemia 6. BMI of 30 7. Hypertensive cardiovascular disease 8. GERD Discharge plan: Return home Impression and plan of care have been directed as dictated by the signing physician. Martha Vora nurse practitioner acting as scribe for signing physician. Cc Dr. Stanton Garcias Patient Condition at Discharge: Good Plan - Discharge Summary New Discharge Prescriptions: Apixaban [Eliquis] 5 mg PO BID #180 tab Aspirin 81 mg PO DAILY #30 chewable Metoprolol Tartrate [Lopressor] 25 mg PO BID #180 tab Discharge Medication List Allergy Relief Unknown Otc 1 tab PO DAILY PRN 06/07/16 [History] Atorvastatin [Lipitor] 10 mg PO DAILY 06/07/16 [History] Canagliflozin [Invokana] 300 mg PO DAILY 06/07/16 [History] Gemfibrozil [Lopid] 600 mg PO HS 06/07/16 [History] Losartan/Hydrochlorothiazide [Losartan-Hctz 50-12.5 mg Tab] 1 tab PO DAILY 06/07 [History] Multivits-Min/Iron/FA/Lutein [Centrum Silver Women Tablet] 1 tab PO DAILY [History] Omeprazole [PriLOSEC] 20 mg PO DAILY 06/07/16 [History] Sodium Chloride [[place]] 2 spray EA NOSTRIL DAILY PRN 06/07/16 [History] glipiZIDE XL [Glucotrol XL] 5 mg PO DAILY 06/07/16 [History] metFORMIN HCL [Glucophage] 1,500 mg PO HS 06/07/16 [History] Apixaban [Eliquis] 5 mg PO BID #180 tab 06/09/16 [Rx] Aspirin 81 mg PO DAILY #30 chewable 06/09/16 [Rx] Metoprolol Tartrate [Lopressor] 25 mg PO BID #180 tab 06/09/16 [Rx] Follow up Appointment(s)/Referral(s): Lexie Florence MD [STAFF PHYSICIAN] - 2 Weeks Eugenia Marlow MD [STAFF PHYSICIAN] - 1 Week (Her cup for possible CVA related to atrial fibrillation) Stanton Garcias DO [Primary Care Provider] - 1 Week Activity/Diet/Wound Care/Special Instructions: *transportation department supervisor Eliquis from [facility] at time of discharge* Discharge Disposition: HOME SELF-CARE
== END 2016-06-09 13:33 | disposition home or self-care (01) ==
LOC: EC 18:56 → INTOOBSV 20:25 → 6SEL 20:25
PROVIDERS: ADMIT Internal Medicine Geriatric Medicine; ATTEND Internal Medicine Geriatric Medicine
DX: I48.0 Paroxysmal atrial fibrillation (principal); I48.92 Unspecified atrial flutter; I11.9 Hypertensive heart disease without heart failure; G47.33 Obstructive sleep apnea (adult) (pediatric); E78.5 Hyperlipidemia, unspecified; K21.9 Gastro-esophageal reflux disease without esophagitis; E11.9 Type 2 diabetes mellitus without complications; Z68.30 Body mass index [BMI] 30.0-30.9, adult; Z79.899 Other long term (current) drug therapy; Z79.84 Long term (current) use of oral hypoglycemic drugs; Z88.2 Allergy status to sulfonamides; Z91.19 Patient's noncompliance with other medical treatment and regimen
CPT/HCPCS: 96366 ×2; 96376; 96365; 99291; 36415; 93005; 93306; 80061; 80053 ×2; 80048; 82550 ×2; 82553 ×2; 83735; 84100; 84443; 84484 ×2; 85025 ×3; 85610; 85730; G0378 ×4

== ENCOUNTER 2016-07-07 05:38 | Observation (INO) | payer MEDICARE ==
[2016-07-07 06:19] LABS: Basophils # (A) 0.1 k/uL (0-0.2); Basophils % (A) 1 %; CH 30.9; CHCM 36.1; Eosinophils # (A) 0.5 k/uL (0-0.7); Eosinophils % (A) 3 %; HCT 44.4 % (34.0-46.0); HDW 3.22; HGB 15.8 gm/dL (11.4-16.0); Luc # (Auto) 0.19; Luc % (Auto) 1; Lymphocytes # (A) 2.7 k/uL (1.0-4.8); Lymphocytes % (A) 17 %; MCH 30.7 pg (25.0-35.0); MCHC 35.7 g/dL (31.0-37.0); MCV 86.1 fL (80.0-100.0); Mean Platelet Volume 7.1; Monocytes # (A) 0.5 k/uL (0-1.0); Monocytes % (A) 3 %; Neutrophils # (A) 11.8 k/uL (1.3-7.7); Neutrophils % (A) 75 %; RBC 5.15 m/uL (3.80-5.40); RDW 13.8 % (11.5-15.5); WBC 15.7 k/uL (3.8-10.6); WBC (Perox) 15.12
[2016-07-07 06:30] LABS: ALT 60 U/L (9-52); AST 52 U/L (14-36); Alkaline Phosphatase 90 U/L (38-126); Anion Gap 16 mmol/L; Blood Urea Nitrogen 19 mg/dL (7-17); Carbon Dioxide 23 mmol/L (22-30); Chloride 102 mmol/L (98-107); Glucose 222 mg/dL (74-99); Magnesium 1.7 mg/dL (1.6-2.3); Non-African American GFR(MDRD) >60 (>60 ml/min/1.73 sqM); Potassium 4.3 mmol/L (3.5-5.1); Sodium 141 mmol/L (137-145); Total Bilirubin 0.7 mg/dL (0.2-1.3); Total Protein 7.5 g/dL (6.3-8.2)
[2016-07-07 06:40] LABS: Partial Thromboplastin Time 21.9 sec (22.0-30.0); Prothrombin Time 10.2 sec (9.0-12.0)
[2016-07-07 06:46] LABS: Creatine Kinase 88 U/L (30-135)
--- NOTE | 2016-07-07 06:47 | ED ---
General Adult HPI - General Chief complaint: Chest Pain Stated complaint: Chest pain, neckpain Time Seen by Provider: 07/07/16 05:57 Source: patient, family, RN notes reviewed, old records reviewed Mode of arrival: wheelchair Limitations: no limitations - History of Present Illness Initial comments: This is a 66-year-old female ER for evaluation. This patient presents for evaluation of nausea, possible atypical chest pain, mild shortness of breath. Patient has recent diagnosis of A. fib, no prior cardiac evaluation. Patient does have high cholesterol. Patient is no chest pain at this time, symptoms are improved. Patient has had recent upper respiratory infection runny nose cough congestion. No fevers. No travel history. No sick contacts. She was recently hospitalized and diagnosed with atrial fibrillation, Serzone and Lopressor and anticoagulation - Related Data Home Medications Medication Instructions Recorded Confirmed Allergy Relief Unknown Otc 1 tab PO DAILY PRN 06/07/16 06/07/16 Atorvastatin [Lipitor] 10 mg PO DAILY 06/07/16 06/07/16 Canagliflozin [Invokana] 300 mg PO DAILY 06/07/16 06/07/16 Gemfibrozil [Lopid] 600 mg PO HS 06/07/16 06/07/16 Losartan/Hydrochlorothiazide 1 tab PO DAILY 06/07/16 06/07/16 [Losartan-Hctz 50-12.5 mg Tab] Multivit-Min/Iron/Folic/Lutein 1 tab PO DAILY 06/07/16 06/07/16 [Centrum Silver Women Tablet] Omeprazole [PriLOSEC] 20 mg PO DAILY 06/07/16 06/07/16 Sodium Chloride [[place]] 2 spray EA NOSTRIL DAILY PRN 06/07/16 06/07/16 glipiZIDE XL [Glucotrol XL] 5 mg PO DAILY 06/07/16 06/07/16 metFORMIN HCL [Glucophage] 1,500 mg PO HS 06/07/16 06/07/16 Previous Rx's Medication Instructions Recorded Apixaban [Eliquis] 5 mg PO BID #180 tab 06/09/16 Aspirin 81 mg PO DAILY #30 chewable 06/09/16 Metoprolol Tartrate [Lopressor] 25 mg PO BID #180 tab 06/09/16 Allergies Allergy/AdvReac Type Severity Reaction Status Date / Time Sulfa (Sulfonamide Allergy Rash/Hives Verified 07/07/16 05:48 Antibiotics) Review of Systems ROS Statement: Those systems with pertinent positive or pertinent negative responses have been documented in the HPI. ROS Other: All systems not noted in ROS Statement are negative. Past Medical History Past Medical History: Atrial Fibrillation, Diabetes Mellitus, Hyperlipidemia, Hypertension, Sleep Apnea/CPAP/BIPAP History of Any Multi-Drug Resistant Organisms: None Reported Additional Past Surgical History / Comment(s): left breat biospy Past Psychological History: No Psychological Hx Reported Smoking Status: Never smoker Past Alcohol Use History: None Reported Past Drug Use History: None Reported - Past Family History Mother Additional Family Medical History / Comment(s): pancreatic cancer Father Family Medical History: No Reported History General Exam Limitations: no limitations General appearance: alert, in no apparent distress Head exam: Present: atraumatic, normocephalic, normal inspection Eye exam: Present: normal appearance, PERRL, EOMI. Absent: scleral icterus, conjunctival injection, periorbital swelling ENT exam: Present: normal exam, mucous membranes moist Neck exam: Present: normal inspection. Absent: tenderness, meningismus, lymphadenopathy Respiratory exam: Present: normal lung sounds bilaterally. Absent: respiratory distress, wheezes, rales, rhonchi, stridor Cardiovascular Exam: Present: regular rate, normal rhythm, normal heart sounds. Absent: systolic murmur, diastolic murmur, rubs, gallop, clicks GI/Abdominal exam: Present: soft, normal bowel sounds. Absent: distended, tenderness, guarding, rebound, rigid Extremities exam: Present: normal inspection, full ROM, normal capillary refill. Absent: tenderness, pedal edema, joint swelling, calf tenderness Back exam: Present: normal inspection Neurological exam: Present: alert, oriented X3, CN II-XII intact Psychiatric exam: Present: normal affect, normal mood Skin exam: Present: warm, dry, intact, normal color. Absent: rash Course Vital Signs 07/07/16 07/07/16 05:46 06:39 Temperature 98.7 F 98.3 F Pulse Rate 82 80 Respiratory 18 18 Rate Blood Pressure 132/71 121/69 O2 Sat by Pulse 94 L 97 Oximetry - Reevaluation(s) Reevaluation #1: 07/07/16 07:19 Patient remains without chest pain at this time, no acute distress EKG Findings - EKG Comments: EKG Findings:: EKG shows normal sinus rhythm rate of 79, GA 42, QRS 74, QTc 456 Medical Decision Making - Medical Decision Making 66 female to the. ER for evaluation of arrhythmia, nausea, chest discomfort. Patient will be admitted for cardiac observation - Lab Data Result diagrams: 07/07/16 05:50 07/07/16 05:50 Lab Results 07/07/16 07/07/16 07/07/16 Range/Units 05:50 05:50 05:50 WBC 15.7 H (3.8-10.6) k/uL RBC 5.15 (3.80-5.40) m/uL Hgb 15.8 (11.4-16.0) gm/dL Hct 44.4 (34.0-46.0) % MCV 86.1 (80.0-100.0) fL MCH 30.7 (25.0-35.0) pg MCHC 35.7 (31.0-37.0) g/dL RDW 13.8 (11.5-15.5) % Plt Count 194 (150-450) k/uL Neutrophils % 75 % Lymphocytes % 17 % Monocytes % 3 % Eosinophils % 3 % Basophils % 1 % Neutrophils # 11.8 H (1.3-7.7) k/uL Lymphocytes # 2.7 (1.0-4.8) k/uL Monocytes # 0.5 (0-1.0) k/uL Eosinophils # 0.5 (0-0.7) k/uL Basophils # 0.1 (0-0.2) k/uL PT (9.0-12.0) sec INR (<1.1) APTT (22.0-30.0) sec D-Dimer (<0.60) mg/L FEU Sodium 141 (137-145) mmol/L Potassium 4.3 (3.5-5.1) mmol/L Chloride 102 (98-107) mmol/L Carbon Dioxide 23 (22-30) mmol/L Anion Gap 16 mmol/L BUN 19 H (7-17) mg/dL Creatinine 0.50 L (0.52-1.04) mg/dL Est GFR (MDRD) Af Amer >60 (>60 ml/min/1.73 sqM) Est GFR (MDRD) Non-Af >60 (>60 ml/min/1.73 sqM) Glucose 222 H (74-99) mg/dL Calcium 10.0 (8.4-10.2) mg/dL Magnesium 1.7 (1.6-2.3) mg/dL Total Bilirubin 0.7 (0.2-1.3) mg/dL AST 52 H (14-36) U/L ALT 60 H (9-52) U/L Alkaline Phosphatase 90 (38-126) U/L Total Creatine Kinase 88 (30-135) U/L CK-MB (CK-2) 1.3 (0.0-2.4) ng/mL CK-MB (CK-2) Rel Index 1.5 Troponin I <0.012 (0.000-0.034) ng/mL NT-Pro-B Natriuret Pep pg/mL Total Protein 7.5 (6.3-8.2) g/dL Albumin 4.7 (3.5-5.0) g/dL 07/07/16 07/07/16 Range/Units 05:50 05:50 WBC (3.8-10.6) k/uL RBC (3.80-5.40) m/uL Hgb (11.4-16.0) gm/dL Hct (34.0-46.0) % MCV (80.0-100.0) fL MCH (25.0-35.0) pg MCHC (31.0-37.0) g/dL RDW (11.5-15.5) % Plt Count (150-450) k/uL Neutrophils % % Lymphocytes % % Monocytes % % Eosinophils % % Basophils % % Neutrophils # (1.3-7.7) k/uL Lymphocytes # (1.0-4.8) k/uL Monocytes # (0-1.0) k/uL Eosinophils # (0-0.7) k/uL Basophils # (0-0.2) k/uL PT 10.2 (9.0-12.0) sec INR 1.0 (<1.1) APTT 21.9 L (22.0-30.0) sec D-Dimer 0.26 (<0.60) mg/L FEU Sodium (137-145) mmol/L Potassium (3.5-5.1) mmol/L Chloride (98-107) mmol/L Carbon Dioxide (22-30) mmol/L Anion Gap mmol/L BUN (7-17) mg/dL Creatinine (0.52-1.04) mg/dL Est GFR (MDRD) Af Amer (>60 ml/min/1.73 sqM) Est GFR (MDRD) Non-Af (>60 ml/min/1.73 sqM) Glucose (74-99) mg/dL Calcium (8.4-10.2) mg/dL Magnesium (1.6-2.3) mg/dL Total Bilirubin (0.2-1.3) mg/dL AST (14-36) U/L ALT (9-52) U/L Alkaline Phosphatase (38-126) U/L Total Creatine Kinase (30-135) U/L CK-MB (CK-2) (0.0-2.4) ng/mL CK-MB (CK-2) Rel Index Troponin I (0.000-0.034) ng/mL NT-Pro-B Natriuret Pep 77 pg/mL Total Protein (6.3-8.2) g/dL Albumin (3.5-5.0) g/dL - Radiology Data Radiology results: report reviewed (Chest x-ray is negative for acute disease), image reviewed Critical Care Time Critical Care Time: Yes Total Critical Care Time: 31 Disposition Clinical Impression: Chest pain, Atypical chest pain, Atrial fibrillation Disposition: ADMITTED IP TO THIS [facility] Condition: Fair Referrals: Stanton Garcias DO [Primary Care Provider] - 1-2 days
--- NOTE | 2016-07-07 06:52 | XR ---
EXAM: XR Chest, 2 Views CLINICAL HISTORY: Reason: Chest Pain TECHNIQUE: Frontal and lateral views of the chest. COMPARISON: Chest 10/25/15 FINDINGS: Lungs: Unremarkable. No consolidation. Pleural space: No pleural effusion. No pneumothorax. Heart: Unremarkable. No cardiomegaly. Mediastinum: Unremarkable. Bones/joints: Unremarkable. IMPRESSION: No acute cardiopulmonary disease.
[2016-07-07 06:58] LABS: Creatine Kinase MB 1.3 ng/mL (0.0-2.4); Troponin I <0.012 ng/mL (0.000-0.034)
[2016-07-07] MEDS ORDERED: NITROGLYCERIN SL TABS 0.4 MG TAB SUBLINGUAL PRN (07:16)
[2016-07-07 12:02] LABS: Glucose,Whole Blood 150 mg/dL (75-99)
[2016-07-07 12:10] LABS: Creatine Kinase 75 U/L (30-135)
[2016-07-07 12:22] LABS: Creatine Kinase MB 1.1 ng/mL (0.0-2.4); Troponin I <0.012 ng/mL (0.000-0.034)
--- NOTE | 2016-07-07 12:47 | P.HPIM ---
History of Present Illness H&P Date: 07/07/16 Chief Complaint: Chest pain This is a pleasant 66-year-old lady patient of Dr. Garcias and Dr. Florence is her staff radiographer. She has a medical history of diabetes mellitus type 2, obstructive sleep apnea not compliant on CPAP machine, hypertension, hyperlipidemia recently diagnosed with paroxysmal atrial fibrillation and she was admitted to the hospital on 06/11/2016 she was started on Eliquis 5 minute gram orally twice every day along with metoprolol and she was discharged home. Patient went inside and dismounted office about a week ago and everything was fine patient woke up today at around 3:00 in the morning complaining of chest pressure associated with increased nausea felt like she is going to belch and patient was worried about she ended up talking to her daughter who she lives with and they came to the ER at [facility] where she had an EKG that showed normal sinus rhythm with no acute ischemic changes, chest x-ray was normal, patient stated that she had an upper respiratory tract infection about a week or 2 weeks ago and she has been complaining of increased coughing and some phlegm production that is yellowish. The patient was seen and examined and the her laboratory evaluation were reviewed, patient does appear to have bronchitis at this time, she would need to be on oral antibiotic in the form of Z-Rj 1. Patient was admitted to the hospital for eval you should by cardiology patient did have a stress test through Dr. Florence she believes about 2 years ago. Review of Systems Constitutional: Denies chronic headaches, Denies malaise, Denies weight gain, Denies weight loss Eyes: denies blurred vision, denies bulging eye, denies decreased vision, denies diplopia Ears: deny: decreased hearing Ears, nose, mouth and throat: Denies dysphagia, Denies neck lump, Denies sore throat, Denies vertigo Cardiovascular: Reports chest pain, Denies decreased exercise tolerance, Denies edema, Denies high blood pressure, Denies paroxysmal nocturnal dyspnea, Denies phlebitis, Denies rapid heart beat, Denies shortness of breath Respiratory: Reports cough, Reports cough with sputum, Denies congestion, Denies home oxygen, Denies sleep apnea, Denies snoring, Denies wheezing Gastrointestinal: Denies abdominal pain, Denies bloating, Denies BRBPR, Denies excessive gas, Denies melena, Denies nausea, Denies vomiting Genitourinary: Denies dysuria, Denies hematuria Menstruation: Reports postmenopausal Musculoskeletal: Denies myalgias Musculoskeletal: absent: ankle pain, ankle stiffness, ankle swelling, elbow pain , elbow stiffness, elbow swelling, foot pain, foot stiffness, foot swelling, hand pain, hand stiffness, hand swelling, hip pain, hip stiffness, hip swelling , knee pain, knee stiffness, knee swelling, shoulder pain, shoulder stiffness, shoulder swelling, wrist pain, wrist stiffness, wrist swelling Integumentary: Denies pruritus, Denies rash Neurological: Denies numbness, Denies weakness Psychiatric: Denies anxiety, Denies depression Endocrine: Denies fatigue, Denies weight change Past Medical History Past Medical History: Atrial Fibrillation, Atrial Flutter, Diabetes Mellitus, GERD/Reflux, Hyperlipidemia, Hypertension, Sleep Apnea/CPAP/BIPAP Additional Past Medical History / Comment(s): Pt admitted to [facility] 06/07/16 with Afib/flutter with RVR converted with cardizem, LA severely dilated. Other HX: NORMAN-has a CPAP but does not use, NIDDM type II. History of Any Multi-Drug Resistant Organisms: None Reported Past Surgical History: Breast Surgery Additional Past Surgical History / Comment(s): left breat biospy-benign, colonoscopy-normal, D&C Past Anesthesia/Blood Transfusion Reactions: No Reported Reaction Past Psychological History: No Psychological Hx Reported Additional Psychological History / Comment(s): Pt has an adult tariq who resides with her. She is independent. She has a CPAP but does not use it. Smoking Status: Never smoker Past Alcohol Use History: None Reported Past Drug Use History: None Reported - Past Family History Mother Family Medical History: Cancer Additional Family Medical History / Comment(s): Mother at age 32 from pancreatic cancer Father Family Medical History: No Reported History Additional Family Medical History / Comment(s): She does not know father history. Daughter(s) Additional Family Medical History / Comment(s): Patient has one son and one daughter with no major medical problems. Patient was an only child. Medications and Allergies Home Medications Medication Instructions Recorded Confirmed Type Allergy Relief Unknown Otc 1 tab PO DAILY PRN 06/07/16 07/07/16 History Atorvastatin [Lipitor] 10 mg PO DAILY 06/07/16 07/07/16 History Canagliflozin [Invokana] 300 mg PO DAILY 06/07/16 07/07/16 History Gemfibrozil [Lopid] 600 mg PO HS 06/07/16 07/07/16 History Losartan/Hydrochlorothiazide 1 tab PO DAILY 06/07/16 07/07/16 History [Losartan-Hctz 50-12.5 mg Tab] Multivit-Min/Iron/Folic/Lutein 1 tab PO DAILY 06/07/16 07/07/16 History [Centrum Silver Women Tablet] Omeprazole [PriLOSEC] 20 mg PO DAILY 06/07/16 07/07/16 History Sodium Chloride [[place]] 2 spray EA NOSTRIL DAILY PRN 06/07/16 07/07/16 History metFORMIN HCL [Glucophage] 1,500 mg PO HS 06/07/16 07/07/16 History glipiZIDE XL [Glucotrol Xl] 10 mg PO DAILY 07/07/16 07/07/16 History Allergies Allergy/AdvReac Type Severity Reaction Status Date / Time Sulfa (Sulfonamide Allergy Rash/Hives Verified 07/07/16 07:44 Antibiotics) Physical Exam Vitals: Vital Signs Temp Pulse Pulse Resp BP BP Pulse Ox 07/07/16 08:25 98.1 F 78 16 119/67 95 07/07/16 08:20 98.0 F 78 16 117/65 07/07/16 07:00 98.6 F 80 16 109/67 100 07/07/16 06:39 98.3 F 80 18 121/69 97 07/07/16 05:46 98.7 F 82 18 132/71 94 L Intake and Output 07/06/16 07/07/16 07/07/16 22:59 06:59 14:59 Other: Weight 82.1 kg 82.5 kg Patient Weight 07/08/16 06:59 Weight 82.5 kg - Constitutional General appearance: no acute distress - EENT Eyes: anicteric sclerae, EOMI, PERRLA, no ptosis, no scleral icterus, normal appearance ENT: hearing grossly normal, NA/AT, normal oropharynx, no thrush Ears: bilateral: normal - Neck Neck: no lymphadenopathy, normal ROM, no rigidity, no stridor, no thyromegaly Carotids: bilateral: upstroke normal Thyroid: bilateral: normal size - Respiratory Respiratory: bilateral: diminished, negative: dullness, rales, rhonchi, wheezing , prolonged expiration - Cardiovascular Rhythm: regular Heart sounds: normal: S1, S2 Abnormal Heart Sounds: no systolic murmur, no S3 Gallop, no S4 Gallop, no click - Gastrointestinal General gastrointestinal: normal bowel sounds, soft, no splenomegaly, no tenderness, no umbilical hernia, no ventral hernia - Integumentary Integumentary: normal, normal turgor - Neurologic Neurologic: CNII-XII intact - Musculoskeletal Musculoskeletal: strength equal bilaterally - Psychiatric Psychiatric: A&O x's 3, appropriate affect, intact judgment & insight Results CBC & Chem 7: 07/07/16 05:50 07/07/16 05:50 Labs: Abnormal Lab Results - Last 24 Hours (Table) 07/07/16 07/07/16 07/07/16 Range/Units 05:50 05:50 05:50 WBC 15.7 H (3.8-10.6) k/uL Neutrophils # 11.8 H (1.3-7.7) k/uL APTT 21.9 L (22.0-30.0) sec BUN 19 H (7-17) mg/dL Creatinine 0.50 L (0.52-1.04) mg/dL Glucose 222 H (74-99) mg/dL AST 52 H (14-36) U/L ALT 60 H (9-52) U/L Thrombosis Risk Factor Assmnt - DVT/VTE Prophylaxis DVT/VTE Prophylaxis: Pharmacologic Prophylaxis ordered, Mechanical Prophylaxis ordered - Choose All That Apply Any of the Below Risk Factors Present?: Yes Each Factor Represents 1 point: Obesity (BMI >25) Other Risk Factors: Yes Each Risk Factor Represents 2 Points: Age 61-74 years Other congenital or acquired thrombophilia - If yes, enter type in comment: No Thrombosis Risk Factor Assessment Total Risk Factor Score: 3 Thrombosis Risk Factor Assessment Level: Moderate Risk Assessment and Plan Plan: Assessment and plan: 1. Chest pain likely noncardiac due to acute bronchitis. Patient does have a few risk factors for CAD. We will admit the patient to the hospital, serial enzymes, she will be started on Zithromax 500 mg orally once every day for 3 days, Mucinex 600 mg orally twice every day for 10 days, patient is to see cardiology and possibly cardiac testing as an outpatient. 2. Paroxysmal atrial fibrillation. Currently in sinus rhythm. Continue Eliquis 5 mg orally twice every day and metoprolol 25 mg orally twice every day. 3. Hyperlipidemia. Discussed with the patient low fat low cholesterol diet and exercise and weight loss, recommended for the patient to switch gemfibrozil to fenofibrate 160 mg orally once every day and to continue with Lipitor 10 mg orally once every day and add Vascepa 2 g orally twice every day, and follow-up with lipid profile in about 4-6 weeks. 4. Elevated liver function tests thought to be due to fatty liver. We'll check ultrasound of the liver, continue patient on Lipitor and gemfibrozil for now . 5. Diabetes mellitus type 2. Continue CCA 1800 diet, continue glipizide 5 mg orally twice every day, metformin 1500 mg at bedtime, patient is also on Invokana 300 mg orally once every day. BGM once every day, total life style changes and risk factor modifications. 6. Obesity with obstructive sleep apnea. Continue CPAP. 7. GERD. Continue Protonix 40 mg orally once every day. 8. Patient is medically stable to be discharged from medical standpoint as to follow-up with cardiology as an outpatient. 9. Full code. 10. Observation.
[2016-07-07] MEDS: INSULIN LISPRO (humaLOG) 300 UNIT/3 ML VIAL SQ SCH ×3 (13:58→20:47)
[2016-07-07 14:07] LABS: Hemoglobin A1C 7.1 % (4.2-6.1)
[2016-07-07] MEDS ORDERED: ACETAMINOPHEN TAB 325 MG TAB PO PRN (16:20)
[2016-07-07 16:28] LABS: Appearance,Urine Clear (Clear); Bilirubin,Urine Negative (Negative); Glucose,Urine (UA) 4+ (Negative); Ketones,Urine 1+ (Negative); Leukocyte Esterase,Urine Negative (Negative); Nitrite,Urine Negative (Negative); Protein,Urine Negative (Negative); Specific Gravity,Urine 1.031 (1.001-1.035); UA Billing (MACRO vs. MICRO) CHEM; Urobilinogen,Urine <2.0 mg/dL (<2.0)
[2016-07-07 16:52] LABS: Glucose,Whole Blood 123 mg/dL (75-99)
[2016-07-07] MEDS: AZITHROMYCIN 500 MG TAB PO SCH (17:29)
[2016-07-07 18:33] LABS: Creatine Kinase 71 U/L (30-135)
[2016-07-07 18:42] LABS: Creatine Kinase MB 0.9 ng/mL (0.0-2.4); Troponin I <0.012 ng/mL (0.000-0.034)
[2016-07-07 20:20] LABS: Glucose,Whole Blood 170 mg/dL (75-99)
[2016-07-07] MEDS: APIXABAN 5 MG TAB PO SCH (20:47)
[2016-07-07] MEDS: METOPROLOL TARTRATE 25 MG TAB PO SCH (20:47)
[2016-07-07] MEDS ORDERED: metFORMIN 500 MG TAB PO SCH (21:00)
[2016-07-07] MEDS ORDERED: GEMFIBROZIL 600 MG TAB PO SCH (21:00)
[2016-07-07 23:42] LABS: Cholesterol 192 mg/dL (<200); HDL Cholesterol 26 mg/dL (40-60); Triglycerides 475 mg/dL (<150)
[2016-07-08 07:01] LABS: Glucose,Whole Blood 189 mg/dL (75-99)
[2016-07-08] MEDS ORDERED: PANTOPRAZOLE 40 MG TABLET PO SCH (07:30)
[2016-07-08 08:26] VITALS: BP 116/68; PULSE 70; RESP 16; TEMP 97.9
[2016-07-08] MEDS: INSULIN LISPRO (humaLOG) 300 UNIT/3 ML VIAL SQ SCH (08:36)
[2016-07-08] MEDS ORDERED: LOSARTAN-HCTZ 50-12.5 MG 1 EACH TAB PO SCH (09:00)
[2016-07-08] MEDS ORDERED: ASPIRIN 325 MG TAB PO SCH (09:00)
[2016-07-08] MEDS ORDERED: glipiZIDE 5 MG TAB PO SCH (09:00)
[2016-07-08] MEDS ORDERED: Canagliflozin [Invokana] 300 MG PO SCH (09:00)
[2016-07-08] MEDS ORDERED: ATORVASTATIN 10 MG TAB PO SCH (09:00)
--- NOTE | 2016-07-08 09:20 | CONS ---
DATE OF CONSULTATION: CHIEF COMPLAINT: Chest pain. Jennifer is a 66-year-old lady with history of paroxysmal atrial fibrillation, hypertension, dyslipidemia, [id number] diabetes who presented to the hospital with chest pain. She describes as a sharp precordial pain without definite radiation to neck, arm or back and with unrelated to exertion and associated with diaphoresis. Since admission, she has remained symptom-free and has had 3 sets of cardiac enzymes that have all been within normal limits. Given the atypical nature of her symptoms I think she is stable. Normal EKG negative cardiac enzymes. She is stable to be discharged home and outpatient follow-up pursued through Dr. Florence's office. The patient already has a stress test scheduled for the next 1 to 2 weeks. Past medical history is significant for hypertension, diabetes, dyslipidemia. Medications include: 1. Glucotrol XL 10 daily. 2. Metformin. 3. Prilosec. 4. Lopressor 25 b.i.d. 5. Losartan. 6. Lopid. 7. Lipitor. 8. Eliquis 5 b.i.d. ALLERGIC TO SULFA. Family history is negative for premature coronary artery disease. SOCIAL HISTORY: Negative for current smoking, ETOH abuse or drug abuse. REVIEW OF SYSTEMS: HEENT: Unremarkable. CARDIAC: As described above. RESPIRATORY: Negative. GI: Negative. GENITOURINARY: Negative. MUSCULOSKELETAL: Negative. Dermatology: Negative. Oncological: Negative. The rest of the system review is not relevant. On exam, comfortable at rest. Vital signs are stable. There is no jugular venous distention. Carotid upstroke is normal. There is no bruit. Chest is clear to auscultation and percussion. Heart exam reveals first and second heart sounds. No gallop. No murmur, no rub. ABDOMEN: Soft, nontender. Exam of extremities did not reveal edema. Peripheral pulses are felt. LEAD DRIVER exam did not reveal focal neurological deficits. ASSESSMENT: 1. Chest pain atypical, exact etiology is unclear equivocal for ischemia. 2. Paroxysmal atrial fibrillation. PLAN: The patient is symptom free at the time of my evaluation, she is stable to be discharged home, already has an outpatient stress test scheduled which she is going to keep.
[2016-07-08] MEDS: AZITHROMYCIN 500 MG TAB PO SCH (09:53)
[2016-07-08] MEDS: APIXABAN 5 MG TAB PO SCH (09:53)
[2016-07-08] MEDS: METOPROLOL TARTRATE 25 MG TAB PO SCH (09:54)
--- NOTE | 2016-07-08 09:54 | US ---
EXAMINATION TYPE: US liver DATE OF EXAM: 07/08/2016 COMPARISON: CLINICAL HISTORY: Fatty liver. elevated enzymes, NPO EXAM MEASUREMENTS: Liver Length: 18.2 cm Gallbladder Wall: 0.2 cm CHD: 0.4 cm Right Kidney: 12.4 x 6.3 x 6.2 cm Pancreas: Echogenic. Tail obscured by overlying bowel gas Liver: Increased attenuation, decreased visualization of vessels suggestive of fatty infiltrate. En larged. Gallbladder: wnl Evidence for sonographic Avina's sign: neg CBD: wnl Right Kidney: Medial septated lesion = 3.6 x 3.3 x 2.7 cm with 0.5 cm echogenic focus with shadowing . IMPRESSION: 1. Fatty liver. 2. Nonspecific complex lesion right kidney
--- NOTE | 2016-07-08 11:02 | P.DS ---
Providers Date of admission: 07/07/16 07:17 Expected date of discharge: 07/08/16 Attending physician: Richard Sharma Consults: 07/07/16 07:17 Consult Physician Urgent Consulting Provider: Collin Mckinney Consult Reason/Comments: cp Do you want consulting provider notified?: Yes Primary care physician: [facility] Course: This is a pleasant 66-year-old lady patient of Dr. Garcias and Dr. Florence is her garage attendant. She has a medical history of diabetes mellitus type 2, obstructive sleep apnea not compliant on CPAP machine, hypertension, hyperlipidemia recently diagnosed with paroxysmal atrial fibrillation and she was admitted to the hospital on 06/11/2016 she was started on Eliquis 5 minute gram orally twice every day along with metoprolol and she was discharged home. Patient went inside and dismounted office about a week ago and everything was fine patient woke up today at around 3:00 in the morning complaining of chest pressure associated with increased nausea felt like she is going to belch and patient was worried about she ended up talking to her daughter who she lives with and they came to the ER at [facility] where she had an EKG that showed normal sinus rhythm with no acute ischemic changes, chest x-ray was normal, patient stated that she had an upper respiratory tract infection about a week or 2 weeks ago and she has been complaining of increased coughing and some phlegm production that is yellowish. The patient was seen and examined and the her laboratory evaluation were reviewed, patient does appear to have bronchitis at this time, she would need to be on oral antibiotic in the form of Z-Rj 1. Patient was admitted to the hospital for eval you should by cardiology patient did have a stress test through Dr. Florence she believes about 2 years ago. 07/08: Liver ultrasound reveals fatty liver. Nonspecific complex lesion in the right kidney. Patient has been seen by Dr. Luana Layton with recommendations for follow-up with scheduled stress testing. Patient denies any complaints today. Her cough is better. She will be discharged home in stable condition. Discharge diagnoses: 1. Chest pain likely noncardiac due to acute bronchitis. 2. Paroxysmal atrial fibrillation. 3. Hyperlipidemia. 4. Elevated liver function tests due to fatty liver. 5. Diabetes mellitus type 2. 6. Obesity with obstructive sleep apnea. 7. GERD. Discharge plan: Return home Impression and plan of care have been directed as dictated by the signing physician. Martha Vora nurse practitioner acting as scribe for signing physician. Cc: Dr. Stanton Garcias Patient Condition at Discharge: Good Plan - Discharge Summary New Discharge Prescriptions: New Aspirin EC [Ecotrin Low Dose] 81 mg PO DAILY #30 tablet. Azithromycin [Zithromax] 500 mg PO DAILY #5 tab Continue Sodium Chloride [[place]] 2 spray EA NOSTRIL DAILY PRN PRN Reason: Allergy Symptoms Losartan/Hydrochlorothiazide [Losartan-Hctz 50-12.5 mg Tab] 1 tab PO DAILY Canagliflozin [Invokana] 300 mg PO DAILY metFORMIN HCL [Glucophage] 1,500 mg PO HS Omeprazole [PriLOSEC] 20 mg PO DAILY Atorvastatin [Lipitor] 10 mg PO DAILY Multivit-Min/Iron/Folic/Lutein [Centrum Silver Women Tablet] 1 tab PO DAILY Gemfibrozil [Lopid] 600 mg PO HS Allergy Relief Unknown Otc 1 tab PO DAILY PRN PRN Reason: Allergy Symptoms Apixaban [Eliquis] 5 mg PO BID #180 tab Metoprolol Tartrate [Lopressor] 25 mg PO BID #180 tab glipiZIDE XL [Glucotrol XL] 10 mg PO DAILY Discharge Medication List Allergy Relief Unknown Otc 1 tab PO DAILY PRN 06/07/16 [History] Atorvastatin [Lipitor] 10 mg PO DAILY 06/07/16 [History] Canagliflozin [Invokana] 300 mg PO DAILY 06/07/16 [History] Gemfibrozil [Lopid] 600 mg PO HS 06/07/16 [History] Losartan/Hydrochlorothiazide [Losartan-Hctz 50-12.5 mg Tab] 1 tab PO DAILY 06/07 [History] Multivit-Min/Iron/Folic/Lutein [Centrum Silver Women Tablet] 1 tab PO DAILY 04/21 [History] Omeprazole [PriLOSEC] 20 mg PO DAILY 06/07/16 [History] Sodium Chloride [[place]] 2 spray EA NOSTRIL DAILY PRN 06/07/16 [History] metFORMIN HCL [Glucophage] 1,500 mg PO HS 06/07/16 [History] Apixaban [Eliquis] 5 mg PO BID #180 tab 06/09/16 [Rx] Metoprolol Tartrate [Lopressor] 25 mg PO BID #180 tab 06/09/16 [Rx] glipiZIDE XL [Glucotrol XL] 10 mg PO DAILY 07/07/16 [History] Aspirin EC [Ecotrin Low Dose] 81 mg PO DAILY #30 tablet. 07/08/16 [Rx] Azithromycin [Zithromax] 500 mg PO DAILY #5 tab 07/08/16 [Rx] Follow up Appointment(s)/Referral(s): Stanton Garcias DO [Primary Care Provider] - 1-2 days Patient Instructions/Handouts: Chest Pain (DC) Activity/Diet/Wound Care/Special Instructions: Keep stress test as scheduled and follow up with Dr Florence as planned. Discharge Disposition: HOME SELF-CARE
== END 2016-07-08 10:55 | disposition home or self-care (01) ==
LOC: EC 05:38 → 3OBS 07:17
PROVIDERS: ADMIT Internal Medicine Geriatric Medicine; ATTEND Internal Medicine Geriatric Medicine
DX: J20.9 Acute bronchitis, unspecified (principal); I48.0 Paroxysmal atrial fibrillation; E78.5 Hyperlipidemia, unspecified; K76.0 Fatty (change of) liver, not elsewhere classified; E11.9 Type 2 diabetes mellitus without complications; K21.9 Gastro-esophageal reflux disease without esophagitis; E66.9 Obesity, unspecified; E78.00 Pure hypercholesterolemia, unspecified; Z79.01 Long term (current) use of anticoagulants; Z79.899 Other long term (current) drug therapy; Z79.84 Long term (current) use of oral hypoglycemic drugs; Z88.2 Allergy status to sulfonamides; I10 Essential (primary) hypertension; G47.33 Obstructive sleep apnea (adult) (pediatric); Z91.19 Patient's noncompliance with other medical treatment and regimen
CPT/HCPCS: 36415; 93005; 85379; 83880; 80061; 80053; 83036; 82550; 82553; 83735; 84484; 85025; 85610; 85730; 81003; 71020; 76705; 99291; G0378 ×2

== ENCOUNTER → 2016-10-23 | Outpatient (CLI) | payer MEDICARE ==
--- NOTE | 2016-10-23 16:13 | BD ---
EXAMINATION TYPE: MG DEXA axial skeleton. DATE OF EXAM: 10/23/2016 COMPARISON: NONE CLINICAL HISTORY: Extremity 6-year-old female post menopausal Height: 5'4 Weight: 184 FRAX RISK QUESTIONS: Alcohol (3 or more units per day): no Family History (Parent hip fracture): no Glucocorticoids (More than 3mos): no (Ex: prednisone, prednisolone, methylprednisolone, dexamethasone, and hydrocortisone). History of Fracture in Adulthood: no Secondary Osteoporosis: 1. Type 1 Diabetes: no 2. Hyperthyroidism: no 3. Menopause before 45: no 4. Malnutrition: no 5. Chronic liver disease: no Rheumatoid Arthritis: no Current Tobacco Use: no RISK FACTORS HISTORY OF: Active: Postmenopausal woman: MEDICATIONS: Additional Medications: blood pressure , cholesterol, diabetes type 2 Additional History: post menopausal EXAM MEASUREMENTS: Bone mineral densitometry was performed using the [employer] System. Bone mineral density as measured about the Lumbar spine is: ----- L1-L4(G/cm2): 1.058 T Score Values are as follows: ----- L2: -0.9 ----- L3: -1.0 ----- L4: -1.5 ----- L1-L4: -1.0 Bone mineral density about the R hip (g/cm2): 0.816 Bone mineral density about the L hip (g/cm2): 0.796 T Score values are as follows: -----R Neck: -1.6 -----L Neck: -1.7 -----R Total: -1.0 -----L Total: -0.9 IMPRESSION: Osteopenia (T Score between -2.5 and -1 as noted by T score values in the lumbar spine and both hips) . There is slightly increased risk of fracture and the patient may be considered for treatment. Re-Screen 2-5 years. NOTE: T-SCORE=SD OF THE YOUNG ADULT MEAN.
--- NOTE | 2016-10-25 11:14 | MM ---
Reason for exam: additional evaluation requested from prior study. Last mammogram was performed 3 years and 3 months ago. History: Patient is postmenopausal. Benign excisional biopsy of the left breast, 2013. Benign stereotactic core biopsy of the left breast. Took estrogen for 20 years beginning at age 44. Took progesterone for 20 years beginning at age 44. Physical Findings: Nurse did not find any significant physical abnormalities on exam. MG 3D Diag Mammo W/Cad MECHE Bilateral CC and MLO view(s) were taken. Prior study comparison: July 22, 2013, mammogram, performed at [facility]. March 13, 2012, mammogram, performed at [facility]. The breast tissue is heterogeneously dense. This may lower the sensitivity of mammography. Finding #1: Stable architectural distortion in the left breast consistent with known excisional biopsy. Finding #2: There are typically benign round calcifications in both breasts. Previous mammotome biopsy in the left breast x 2. Asymmetric breast tissue in the left upper outer quadrant is stable. There is no discrete abnormality. These results were verbally communicated with the patient on 10/25/16. ASSESSMENT: Benign, BI-RAD 2 RECOMMENDATION: Routine screening mammogram of both breasts in 1 year.
== END | disposition home or self-care (01) ==
LOC: RADMAMWWP 08:20
PROVIDERS: ATTEND Family Medicine
DX: R92.8 Other abnormal and inconclusive findings on diagnostic imaging of breast (principal); M85.89 Other specified disorders of bone density and structure, multiple sites; Z78.0 Asymptomatic menopausal state
CPT/HCPCS: 77080; G0204; G0279

== ENCOUNTER → 2016-11-28 | Outpatient (CLI) | payer MEDICARE ==
[2016-11-28 12:38] LABS: ALT 70 U/L (9-52); AST 62 U/L (14-36); Alkaline Phosphatase 94 U/L (38-126); Anion Gap 17 mmol/L; Blood Urea Nitrogen 18 mg/dL (7-17); Calcium 10.1 mg/dL (8.4-10.2); Carbon Dioxide 24 mmol/L (22-30); Chloride 99 mmol/L (98-107); Cholesterol 188 mg/dL (<200); Glucose 176 mg/dL (74-99); HDL Cholesterol 31 mg/dL (40-60); Non-African American GFR(MDRD) >60 (>60 ml/min/1.73 sqM); Potassium 4.2 mmol/L (3.5-5.1); Sodium 140 mmol/L (137-145); Total Protein 8.5 g/dL (6.3-8.2)
== END | disposition home or self-care (01) ==
LOC: LABWHC1 11:21
PROVIDERS: ATTEND Internal Medicine Interventional Cardiology
DX: E78.2 Mixed hyperlipidemia (principal)
CPT/HCPCS: 36415; 80053; 80061

== ENCOUNTER → 2017-05-07 | Outpatient (CLI) | payer MEDICARE ==
[2017-05-07 12:07] LABS: ALT 46 U/L (9-52); AST 34 U/L (14-36); Albumin 4.3 g/dL (3.5-5.0); Alkaline Phosphatase 79 U/L (38-126); Anion Gap 14 mmol/L; Blood Urea Nitrogen 18 mg/dL (7-17); Calcium 9.7 mg/dL (8.4-10.2); Carbon Dioxide 25 mmol/L (22-30); Chloride 104 mmol/L (98-107); Cholesterol 165 mg/dL (<200); Glucose 171 mg/dL (74-99); HDL Cholesterol 26 mg/dL (40-60); Potassium 4.4 mmol/L (3.5-5.1); Sodium 143 mmol/L (137-145); Total Bilirubin 0.7 mg/dL (0.2-1.3); Total Protein 7.2 g/dL (6.3-8.2)
[2017-05-07 12:16] LABS: Triglycerides 660 mg/dL (<150)
== END | disposition home or self-care (01) ==
LOC: LABWHC1 11:13
PROVIDERS: ATTEND Internal Medicine Interventional Cardiology
DX: E78.2 Mixed hyperlipidemia (principal)
CPT/HCPCS: 36415; 80053; 80061

== ENCOUNTER → 2017-12-25 | Outpatient (CLI) | payer MEDICARE ==
[2017-12-25 10:46] LABS: Blood Urea Nitrogen 15 mg/dL (7-17)
--- NOTE | 2017-12-25 11:52 | MR ---
EXAMINATION TYPE: MR brain wo/w con DATE OF EXAM: 12/25/2017 COMPARISON: 11/19/2015 and 03/15/2015 MR brain HISTORY: Meningioma, Right cerebral Convexity TECHNIQUE: Multiplanar, multisequence images of the brain and brainstem is performed without and with IV contras t, utilizing 7.5 mL intravenous Gadavist . FINDINGS: Diffusion weighted images demonstrate no evidence of a recent infarct or other diffusion ab normality. There is no extra-axial fluid collection. Degree of nonspecific T2/FLAIR hyperintense whi te matter change is similar to the prior of 11/19/2015 with the most confluent white matter change on the left in the novak radiata measuring 5 mm on both exams. No lesions restricted diffusion are dem onstrated enhancement. The ventricular system and cisternal spaces are normal in size and appearance. The brain volume is age appropriate. There is an extra-axial mass that appears nearly isointense to lucas matter and demonstrates homogeneo us avid enhancement within the right frontal lobe near the convexity. This demonstrates a dural tail and overall measures approximately 1.7 x 1.1 cm (similar to the prior of 03/15/2015 where this measured 1.8 x 1.1 cm). Differences attributable to slice selection. Midline structures demonstrate normal morphology. The craniocervical junction appears within normal limits. The dural venous sinuses appear patent. There is mild leftward nasal septal deviation and mi nimal mucosal thickening in the ethmoid sinuses. The remaining visualized sinuses are clear and the g lobes are intact. There has been interval resolution of the previously seen partial opacification of the left mastoid air cells. IMPRESSION: 1. Stable right extra-axial frontal meningioma dating back to 03/15/2015. 2. Redemonstration of moderate burden nonspecific white matter change, most likely on the basis of ch ronic microangiopathy that is similar in degree in comparison to 03/15/2015.
== END | disposition home or self-care (01) ==
LOC: RADMRIMAIN 10:14
PROVIDERS: ATTEND Psychiatry & Neurology Neurology
DX: D32.0 Benign neoplasm of cerebral meninges (principal); R90.89 Other abnormal findings on diagnostic imaging of central nervous system
CPT/HCPCS: 82565; 84520; 70553; 36415; A9585

== ENCOUNTER → 2018-01-15 | Outpatient (CLI) | payer MEDICARE ==
--- NOTE | 2018-01-15 16:04 | CONS ---
CONSULTATION REASON FOR CONSULTATION: Consultation for sleep apnea. 68-year-old female patient coming in for NORMAN reevaluation. She was diagnosed having NORMAN through [facility] more than 10 years ago. She was unable to tolerate her CPAP machine. She was given two different machines over the years and she is at the point where she is unable to use any of these treatments. Her chief wheelage clerk Dr. Florence was concerned knowing that she has history of atrial fibrillation and based on that, the patient was referred to me for further evaluation. At this point in time, the patient is . She is living with her daughter and her family. She has snoring. She has nocturia. She has grinding of the teeth, and occasional palpitations. She goes to bed around 11:30 pm wakes up at 8:30 a.m. in the morning. No history of any gasping for air or choking sensation at nighttime during sleep. No restlessness in lower extremities. She is averaging about 8 hours of sleep. She wakes up tired but no major hypersomnia or sleepiness. Shannon score is 7. Weight has been essentially stable and there is no significant weight gain or weight loss over the past several years. No angina. No palpitations. No nocturnal heartburn, shortness of breath. No restless legs. No nocturnal seizure. PAST MEDICAL HISTORY: NORMAN, diabetes, hypertension, atrial fibrillation and hyperlipidemia. PAST SURGICAL HISTORY: Includes carpal tunnel release bilaterally and release of the trigger finger and breast biopsy. DRUG ALLERGIES: SULFA. OUTPATIENT MEDICATION LIST: Includes losartan 50/12.5, 1 tablet a day, Invokana 300 p.o. daily, metformin 500 mg 4 times a day. Lipitor 10 mg p.o. daily, omeprazole 40 daily, glipizide 10 daily, Eliquis 5 mg twice a day. Metoprolol twice a day 25 mg a day. Fenofibrate 145 mg p.o. daily, Centrum Silver and Os-Jerome D. FAMILY HISTORY: Negative for sleep apnea. REVIEW OF SYSTEMS: 12-point review of system was done. Positive findings are mentioned above in the history of present illness. No falling asleep during the day. No memory problems. No concentration problems. No depression. No anxiety. No claustrophobia. No sexual dysfunction. No RLS. No sleepwalking or sleep talking. No sleep paralysis. No hallucinations or cataplexy. PHYSICAL EXAMINATION: BP is 125/64, pulse 76, respirations 20, temperature 98.2, saturation 97% on room air. Weight is 182, height is 5 feet, 4 inches. BMI 31.2. Neck size 15 and 1/8 of an inch. Shannon score is at 7. GENERAL APPEARANCE: Calm and comfortable. Head is atraumatic, normocephalic. Neck is short supple, crowding of posterior pharynx. There is no goiter or neck masses. Mallampati class 4. Lungs diminished otherwise clear. HEART: Sounds regular rate and rhythm. Normal S1, S2. No S3, S4. No murmurs. ABDOMEN: Soft, nontender. No organomegaly. EXTREMITIES: No edema. No cyanosis or clubbing. NEUROLOGIC: The patient is alert and oriented times three. No focal neurological deficits. PSYCHIATRIC: Negative for anxiety or depression. IMPRESSION: 1. Obstructive sleep apnea diagnosed more than 10 years ago through [facility] coming in for an evaluation. Currently she is not undergoing any treatment. 2. Snoring. 3. Some degree of hypersomnia, Shannon Score is at 7. 4. Diabetes mellitus. 5. Hypertension. 6. Paroxysmal atrial fibrillation. 7. Hyperlipidemia. PLAN: 1. I asked the patient to have a home sleep study to reestablish diagnosis of sleep apnea and assess its severity. 2. We will pull the records from [facility] to further study the exact diagnostic and therapeutic circumstances that occurred 10 years ago. 3. We will try to utilize 1 of the patient's older CPAP units if possible. 4. I asked to see her back in 6 months' time after completing the home sleep study to have her machines checked and see if there is any need for CPAP titration versus the possibility of using one of her older units for further treatment. 5. We will continue to follow. MMODL / IJN: [id number] /
== END | disposition home or self-care (01) ==
LOC: SLEEP 13:44
PROVIDERS: ATTEND Internal Medicine Critical Care Medicine
DX: G47.33 Obstructive sleep apnea (adult) (pediatric) (principal); R35.1 Nocturia; I48.0 Paroxysmal atrial fibrillation; E11.9 Type 2 diabetes mellitus without complications; R00.2 Palpitations; I10 Essential (primary) hypertension; E78.5 Hyperlipidemia, unspecified; Z98.890 Other specified postprocedural states; Z88.2 Allergy status to sulfonamides; Z79.84 Long term (current) use of oral hypoglycemic drugs; Z79.01 Long term (current) use of anticoagulants; Z79.899 Other long term (current) drug therapy
CPT/HCPCS: 99211

== ENCOUNTER → 2018-04-16 | Outpatient (CLI) | payer MEDICARE ==
--- NOTE | 2018-04-16 18:37 | PN ---
PROGRESS NOTE Jennifer is 68. She is coming in to discuss the results of her sleep study. The patient has obstructive sleep apnea; she was diagnosed through [facility] more than 10 years ago. She was not undergoing any treatment. However, she was concerned, knowing that she was having issues with atrial fibrillation. She was in [place], and upon arrival back in [place], she has had several bouts of atrial fibrillation not requiring any hospitalization. She is having on and off palpitations. She is snoring and she does have ongoing hypersomnia with an Eads score of 7. Her comorbidities include diabetes and hypertension in addition to paroxysmal atrial fibrillation. I conducted a home sleep study. The patient was found to have mild obstructive sleep apnea. Her AHI was 13.7. The disease was slightly worse in the supine body position with an AHI of 18.7. While supine, the patient's disease was slightly worse. The patient spent approximately 9% of sleep time with a pulse ox of less than 90%. I discussed the results of her sleep study with the patient and we decided to proceed with a CPAP titration in preparation for CPAP therapy. She was able to provide me information on the CPAP units that she had at home. The first one was a REM Star older- generation CPAP unit. The second one was a ResMed Elite. The third one was a ResMed S9 series. I think the most up-to-date machine is the ResMed S9 series, which was calibrated at a pressure of 8 at the start, to be reset at a later stage, depending on the CPAP pressures at the time of the titration. I was able to also provide this patient with a DreamWear nose mask to start to use as soon as possible. Her current Eads score is 12. REVIEW OF SYSTEMS: Twelve-point review of systems was done. Positive findings were all mentioned above in the history of present illness. No headaches. No altered mentation. No change in mentation or confusion. No nausea, vomiting, diarrhea or abdominal pain. No cough or sputum production. She is having episodes of palpitation related to atrial fibrillation. No nocturnal chest pain or heartburn. No dysuria or urgency. No frequency. No falls. No ataxia. No anxiety. No depression. No sleepwalking or sleeptalking. No sleep paralysis, hallucinations or cataplexy. PHYSICAL EXAMINATION: BP is 128/73, pulse 78, respirations 16, temperature 98.4, saturation 95% on room air. Weight is 178. Height is 5 feet 4 inches. BMI is 29.8. GENERAL APPEARANCE: Calm, comfortable. Head is atraumatic, normocephalic. NECK: Supple. There is no JVD. No goiter or neck mass. LUNGS: Clear to auscultation. Heart sounds are regular rate and rhythm. Normal S1, S2. No S3, S4. No murmurs. ABDOMEN: Soft, nontender. No organomegaly. EXTREMITIES: No edema. No cyanosis or clubbing. Neurologically alert and oriented x3. No focal neurological deficit. Psychiatrically negative for anxiety or depression. IMPRESSION: 1. Obstructive sleep apnea, moderately severe, with an apnea/hypopnea index of 13.7, symptomatic. 2. Hypersomnia with an Eads score of 12. 3. Paroxysmal atrial fibrillation. 4. Diabetes. 5. Hypertension. PLAN: 1. Encourage weight loss. 2. Will utilize this patient's ResMed S9 series for CPAP therapy. I was able to provide her a DreamWear small-sized nose mask. Her treatment will be started at a pressure of 8 cm of water. Following that the patient will be undergoing a CPAP titration, and the appropriate pressure adjustments will be done. She was agreeable to this plan. I will see her back in 4-6 weeks' time after completion of the CPAP titration. CARLOS / RAIMUNDON: [id number] /
== END | disposition home or self-care (01) ==
LOC: SLEEP 15:59
PROVIDERS: ATTEND Internal Medicine Critical Care Medicine
DX: G47.33 Obstructive sleep apnea (adult) (pediatric) (principal); I48.0 Paroxysmal atrial fibrillation; E11.9 Type 2 diabetes mellitus without complications; I10 Essential (primary) hypertension

== ENCOUNTER → 2018-05-06 | Outpatient (CLI) | payer MEDICARE ==
[2018-05-06 19:53] LABS: ALT 49 U/L (8-44); AST 50 U/L (13-35); Albumin/Globulin Ratio 2.58 (1.60-3.17); Alkaline Phosphatase 54 U/L (41-126); Chloride 98 mmol/L (96-109); Cholesterol 161 mg/dL (0-200); Globulin 1.9 g/dL (1.6-3.3); Glucose 203 mg/dL (70-110); Sodium 139 mmol/L (135-145); Total Bilirubin 0.9 mg/dL (0.2-1.2); Total Protein 6.8 g/dL (6.2-8.2)
== END ==
LOC: LABWHC1 11:47
PROVIDERS: ATTEND Internal Medicine Interventional Cardiology
DX: E78.2 Mixed hyperlipidemia (principal)
CPT/HCPCS: 36415; 80053; 80061; 83721

== ENCOUNTER → 2018-07-03 | Outpatient (CLI) | payer MEDICARE ==
--- NOTE | 2018-07-05 10:07 | MM ---
Reason for exam: screening (asymptomatic). Last mammogram was performed 1 year and 8 months ago. History: Patient is postmenopausal. Benign excisional biopsy of the left breast, 2013. Benign stereotactic core biopsy of the left breast. Took estrogen for 20 years beginning at age 44. Took progesterone for 20 years beginning at age 44. Physical Findings: A clinical breast exam by your physician is recommended on an annual basis and results should be correlated with mammographic findings. MG 3D Screening Mammo W/Cad Bilateral CC and MLO view(s) were taken. Prior study comparison: October 23, 2016, bilateral MG 3d diag mammo w/cad MECHE. July 22, 2013, mammogram, performed at [facility]. No significant changes when compared with prior studies. ASSESSMENT: Benign, BI-RAD 2 RECOMMENDATION: Routine screening mammogram of both breasts in 1 year.
== END | disposition home or self-care (01) ==
LOC: RADMAMWWP 11:11
PROVIDERS: ATTEND Internal Medicine Geriatric Medicine
DX: Z12.31 Encounter for screening mammogram for malignant neoplasm of breast (principal)
CPT/HCPCS: 77063; 77067

== ENCOUNTER → 2018-07-23 | Outpatient (CLI) | payer MEDICARE ==
--- NOTE | 2018-07-23 11:43 | PN ---
PROGRESS NOTE Jennifer is 68, coming in for a compliancy check regarding obstructive sleep apnea. She is 68 years of age. She has an AHI of 15.7. She underwent another CPAP titration and she was offered a new CPAP machine. Currently, she is set at a pressure of 9 cm of water. On today's evaluation, the patient's compliance data was checked and the patient is averaging around 5.7 hours of CPAP use per night. She is using the DreamWear under her nose small size. Leak is 16 L/minute. She is averaging more than 4 hours more than 90% of the time. AHI while on treatment is down to 0.3 and hypersomnolence and sleepiness improved and the patient has no snoring. No other complaints otherwise for now. REVIEW OF SYSTEMS: A twelve-point review of system was done and the positive findings were mentioned above in history of present illness. PHYSICAL EXAMINATION: VITAL SIGNS: BP is 118/84, pulse 64, respirations 16, weight is 179, temperature 97.8, saturation 95% on room air. GENERAL APPEARANCE: Calm, comfortable. HEAD: Atraumatic normocephalic. NECK: Supple. No JVD. No goiter or neck mass. LUNGS: Clear to auscultation. HEART: Sounds regular rate and rhythm. Normal S1, S2. No S3. No murmurs. ABDOMEN: Soft, nontender. No organomegaly. EXTREMITIES: No edema. No cyanosis or clubbing. NEUROLOGIC: Alert and oriented x3. No focal neurological deficits. PSYCHIATRIC: Negative for anxiety or depression. IMPRESSION: 1. Obstructive sleep apnea, AHI of 15 currently on CPAP. 2. Hypersomnia. 3. Obesity. 4. Paroxysmal atrial fibrillation. 5. Diabetes. 6. Hypertension. PLAN: The patient is compliant. The patient is responding nicely to the treatment. Continue CPAP with a pressure of 9. Continue same mask interface. No other adjustment from my standpoint. Will continue to follow. MMODL / IJN: [id number] /
== END ==
LOC: SLEEP 10:00
PROVIDERS: ATTEND Internal Medicine Critical Care Medicine
DX: G47.33 Obstructive sleep apnea (adult) (pediatric) (principal); E66.9 Obesity, unspecified; E11.9 Type 2 diabetes mellitus without complications; I10 Essential (primary) hypertension; I48.0 Paroxysmal atrial fibrillation; Z99.89 Dependence on other enabling machines and devices

== ENCOUNTER → 2018-08-19 | Outpatient (CLI) | payer MEDICARE ==
[2018-08-19 14:32] LABS: Basophils # (A) 0.1 k/uL (0-0.2); Basophils % (A) 1 %; Eosinophils # (A) 0.2 k/uL (0-0.7); Eosinophils % (A) 2 %; HCT 44.1 % (34.0-46.0); Lymphocytes # (A) 4.2 k/uL (1.0-4.8); Lymphocytes % (A) 46 %; MCH 29.5 pg (25.0-35.0); MCV 86.9 fL (80.0-100.0); Mean Platelet Volume 7.6; Monocytes # (A) 0.3 k/uL (0-1.0); Monocytes % (A) 4 %; Neutrophils # (A) 4.2 k/uL (1.3-7.7); Neutrophils % (A) 46 %; Platelet Count 213 k/uL (150-450); RBC 5.08 m/uL (3.80-5.40); RDW 14.4 % (11.5-15.5); WBC 9.2 k/uL (3.8-10.6)
[2018-08-19 18:43] LABS: African American GFR (CKD) 107.8 (60.0-200.0); Albumin 5.1 g/dL (3.80-4.90); Albumin/Globulin Ratio 2.68 (1.60-3.17); Anion Gap 9.4 mmol/L (4.00-12.00); BUN/Creat Ratio 28.33 Ratio (12.00-20.00); Calcium 10.4 mg/dL (8.7-10.3); Carbon Dioxide 28.6 mmol/L (21.6-31.8); Folate, Serum >24.0 ng/mL; Globulin 1.9 g/dL (1.6-3.3); Potassium 4.7 mmol/L (3.5-5.5); Total Bilirubin 0.8 mg/dL (0.2-1.2); Vitamin D 25 Hydroxy 12.1 ng/mL (30.0-100.0)
[2018-08-19 18:44] LABS: LDL Cholesterol,Calculated 55.4 mg/dL (0.0-131.0); VLDL Calculation 76.6 mg/dL (5.00-40.00)
[2018-08-19 22:44] LABS: Hemoglobin A1C 8.1 % (4.0-6.0)
== END | disposition home or self-care (01) ==
LOC: LABWHC1 14:08
PROVIDERS: ATTEND Internal Medicine
DX: R53.83 Other fatigue (principal); E11.9 Type 2 diabetes mellitus without complications; E78.2 Mixed hyperlipidemia
CPT/HCPCS: 36415; 80053; 80061; 82306; 82607; 82746; 83036; 84443; 85025

== ENCOUNTER 2018-10-14 18:36 | Emergency (ER) | payer MEDICARE ==
[~2018-10-14 18:36] MED LIST: HUMAN PROTHROMBIN COMPLX 500 UNIT/16 ML VIAL IV ONE
[2018-10-14 18:44] VITALS: RESP 18
[2018-10-14] MEDS ORDERED: LIDOCAINE 1% INJ 10MG/ML (20 ML MDV) SQ ONE (19:14)
--- NOTE | 2018-10-14 19:48 | XR ---
EXAMINATION TYPE: XR chest 2V DATE OF EXAM: 10/14/2018 COMPARISON: Chest x-ray July 07, 2016 HISTORY: Chest pain and pressure, nausea TECHNIQUE: Frontal and lateral views of the chest are obtained. FINDINGS: There is no focal air space opacity, pleural effusion, or pneumothorax seen. The cardiac silhouette size is upper limits of normal. Multilevel spurring in the thoracic spine is redemonstrate d. Borderline EKG leads are again seen. IMPRESSION: No suspicious acute pulmonary process.
--- NOTE | 2018-10-14 20:00 | CT ---
EXAMINATION TYPE: CT brain yoseph mena con DATE OF EXAM: 10/14/2018 COMPARISON: CT brain 2008 HISTORY: Fall and hit head with headache and neck pain. CT DLP: 1338.4 mGycm. Automated Exposure Control for Dose Reduction was Utilized. TECHNIQUE: CT scan of the head and cervical spine are performed without contrast. FINDINGS: There is right acute subarachnoid hemorrhage filling sulci posterior right frontal region axial images 32 through 38. Mild ventricular and sulcal prominence. No hydrocephalus or midline shif t. Calvarium is intact. Visualized sinuses are clear. Globes are intact bilaterally. Cervical spine is visualized in its entirety from C1 through upper thoracic levels and demonstrates satisfactory alignment without evidence of acute fracture or dislocation. Prevertebral soft tissue a ppears within normal limits. The C1-C2 articulation is within normal limits on the coronal images. Vertebral body heights are maintained. Mild to moderate spurring and disc space narrowing C5-C6 and C 6-C7 levels. Posterior spur disc complex effaces the anterior thecal sac at C5-C6 level on sagittal a nd axial images. Visualized lung apices are clear. Thyroid gland shows incidental nearly 2 cm hypoech oic solid nodule lower pole level axial image 75. Nonemergent thyroid ultrasound is advised to better evaluate and characterize. IMPRESSION: 1. There is no acute fracture or dislocation evident in the cervical spine. Incidental 2.0 cm right t hyroid nodule, follow-up nonemergent thyroid ultrasound is advised. 2. Small amount of acute right subarachnoid hemorrhage posterior frontal lobe. No midline shift. Critical results of acute subarachnoid hemorrhage communicated to ordering ER physician via telephone at time of dictation.
[2018-10-14] MEDS ORDERED: Kcentra PER PHARMACY 1 EACH MISC MISCELLANE PRN (20:05)
--- NOTE | 2018-10-14 20:19 | ED ---
Fall HPI - General Chief Complaint: Fall Stated Complaint: fall Time Seen by Provider: 10/14/18 18:51 Source: patient Mode of arrival: ambulatory - History of Present Illness Initial Comments: Patient is 68-year-old female presenting to emergency Department with a chief complaint of a fall. Patient states that she tripped over a dog's leash and fell forward and hitting her knees, chest and head. Patient denies loss of consciousness at time of incident. Patient reports mild bilateral knee pain but does have full range of motion. Patient also reports left-sided chest pain that is reproducible with palpation. Patient reports the pain is nonradiating and is because of the fall. Patient also reports a 1 cm laceration of the upper lip. Patient denies any headaches, nausea or vomiting. Patient denies any one-sided weakness or paresthesias. Patient has any blurry vision or ataxia. Patient is on blood thinners. - Related Data Home Medications Medication Instructions Recorded Confirmed Canagliflozin [Invokana] 300 mg PO DAILY 06/07/16 10/14/18 Losartan/Hydrochlorothiazide 1 tab PO DAILY 06/07/16 10/14/18 [Losartan-Hctz 50-12.5 mg Tab] Multivit-Min/Iron/Folic/Lutein 1 tab PO DAILY 06/07/16 10/14/18 [Centrum Silver Women Tablet] metFORMIN HCL [Glucophage] 1,500 mg PO HS 06/07/16 10/14/18 Atorvastatin [Lipitor] 40 mg PO DAILY 10/14/18 10/14/18 Dulaglutide [Trulicity] 0.75 mg SQ MO 10/14/18 10/14/18 Fenofibrate Nanocrystallized 145 mg PO HS 10/14/18 10/14/18 [Fenofibrate] Pioglitazone HCl [Actos] 30 mg PO DAILY 10/14/18 10/14/18 Ubidecarenone [Co Q-10] 100 mg PO DAILY 10/14/18 10/14/18 metFORMIN HCL [Glucophage] 500 mg PO QAM 10/14/18 10/14/18 Previous Rx's Medication Instructions Recorded Apixaban [Eliquis] 5 mg PO BID #180 tab 06/09/16 Metoprolol Tartrate [Lopressor] 25 mg PO BID #180 tab 06/09/16 Allergies Allergy/AdvReac Type Severity Reaction Status Date / Time Sulfa (Sulfonamide Allergy Rash/Hives Verified 10/14/18 19:25 Antibiotics) Review of Systems ROS Statement: Those systems with pertinent positive or pertinent negative responses have been documented in the HPI. ROS Other: All systems not noted in ROS Statement are negative. Past Medical History Past Medical History: Atrial Fibrillation, Atrial Flutter, Diabetes Mellitus, GERD/Reflux, Hyperlipidemia, Hypertension, Sleep Apnea/CPAP/BIPAP Additional Past Medical History / Comment(s): Pt admitted to [facility] 06/07/16 with Afib/flutter with RVR converted with cardizem, LA severely dilated. Other HX: NORMAN-has a CPAP but does not use, NIDDM type II. History of Any Multi-Drug Resistant Organisms: None Reported Past Surgical History: Breast Surgery Additional Past Surgical History / Comment(s): left breat biospy-benign, colonoscopy-normal, D&C Past Anesthesia/Blood Transfusion Reactions: No Reported Reaction Past Psychological History: No Psychological Hx Reported Smoking Status: Never smoker Past Alcohol Use History: None Reported Past Drug Use History: None Reported - Past Family History Mother Family Medical History: Cancer Additional Family Medical History / Comment(s): Mother at age 32 from pancreatic cancer Father Family Medical History: No Reported History Additional Family Medical History / Comment(s): She does not know father history. Daughter(s) Additional Family Medical History / Comment(s): Patient has one son and one daughter with no major medical problems. Patient was an only child. General Exam Limitations: no limitations General appearance: alert, in no apparent distress Head exam: Present: normocephalic, normal inspection. Absent: atraumatic (Mild contusion the left side of the face), other (Negative Atkins sign, negative. Overall ecchymosis, negative for temp and.) Eye exam: Present: normal appearance, PERRL, EOMI. Absent: conjunctival injection Pupils: Present: normal accommodation ENT exam: Present: normal exam, normal oropharynx (3 small hemorrhage on tooth #8 and 9.), mucous membranes moist, TM's normal bilaterally, normal external ear exam. Absent: other (1 cm laceration on the upper lip) Neck exam: Present: normal inspection, full ROM. Absent: tenderness Respiratory exam: Present: normal lung sounds bilaterally. Absent: wheezes Cardiovascular Exam: Present: regular rate, normal rhythm, normal heart sounds Extremities exam: Present: normal inspection, full ROM Back exam: Present: normal inspection, full ROM. Absent: CVA tenderness (R), CVA tenderness (L) Neurological exam: Present: alert, oriented X3 Psychiatric exam: Present: normal affect, normal mood Skin exam: Present: warm, intact, normal color Course Vital Signs 10/14/18 18:41 Temperature 99.1 F Pulse Rate 79 Respiratory 18 Rate Blood Pressure 130/66 O2 Sat by Pulse 99 Oximetry Medical Decision Making - Medical Decision Making Patient is a 68-year-old female presenting to emergency Department with a chief complaint of a fall. Patient does report a bilateral knee pain but on physical examination she has full range of motion and the pain has decreased since the incident. Patient reports left sided chest pain that is exacerbated with palpation. Chest pain is reproducible. Patient reports the pain is due to contusion. There is also 1 cm laceration on the left upper lip with mild hemorrhage along the gum line at tooth #[address] of the C-spine was performed is indicative of right-sided subarachnoid hemorrhage near the posterior frontal lobe. Patient is neurovascularly intact. No altered mental status. Patient is on blood thinners, Eloquis. I spoke with Dr. Schmitt from [facility] who is going to accept the patient. Patient will be transferred to [facility]. Case discussed with Dr. Davila. Disposition Clinical Impression: Fall, Subarachnoid hemorrhage, Laceration Disposition: OTHER INSTITUTION NOT DEFINED Condition: Stable Instructions (If sedation given, give patient instructions): Fall Prevention (ED) Additional Instructions: Patient will be transferred via ambulance to [facility]. Is patient prescribed a controlled substance at d/c from ED?: No Referrals: Edwige Hirsch MD [Primary Care Provider] - 1-2 days Time of Disposition: 20:18 - Out of Hospital Transfer - Req. Specs Out of Hospital Transfer - Requested Specifics: Other Emergency Center ([facility])
[2018-10-14 20:25] LABS: Basophils # (A) 0.1 k/uL (0-0.2); Basophils % (A) 1 %; Eosinophils # (A) 0.2 k/uL (0-0.7); Eosinophils % (A) 2 %; HGB 14.7 gm/dL (11.4-16.0); Lymphocytes # (A) 3.9 k/uL (1.0-4.8); Lymphocytes % (A) 35 %; MCH 30.2 pg (25.0-35.0); MCHC 34.2 g/dL (31.0-37.0); MCV 88.1 fL (80.0-100.0); Monocytes # (A) 0.5 k/uL (0-1.0); Monocytes % (A) 4 %; Neutrophils # (A) 6.3 k/uL (1.3-7.7); Neutrophils % (A) 56 %; Platelet Count 211 k/uL (150-450); RBC 4.88 m/uL (3.80-5.40); RDW 13.9 % (11.5-15.5); WBC 11.2 k/uL (3.8-10.6)
[2018-10-14] MEDS ORDERED: HUMAN PROTHROMBIN COMPLX IV ONE (20:30)
[2018-10-14 20:33] LABS: INR 0.9 (<1.2); Partial Thromboplastin Time 24.7 sec (22.0-30.0)
[2018-10-14 20:34] LABS: ALT 40 U/L (9-52); AST 40 U/L (14-36); African American GFR (CKD) >90 (>60 ml/min/1.73 sqM); Albumin 4.9 g/dL (3.5-5.0); Alkaline Phosphatase 49 U/L (38-126); Anion Gap 13 mmol/L; Blood Urea Nitrogen 22 mg/dL (7-17); Calcium 10.4 mg/dL (8.4-10.2); Carbon Dioxide 24 mmol/L (22-30); Chloride 102 mmol/L (98-107); Glucose 132 mg/dL (74-99); Potassium 4.3 mmol/L (3.5-5.1); Sodium 139 mmol/L (137-145); Total Bilirubin 0.6 mg/dL (0.2-1.3)
[2018-10-14 20:59] VITALS: BP 104/61; PULSE 82; TEMP 98.3
== END 2018-10-14 21:27 | disposition other institution (70) ==
LOC: EC 18:36
DX: I60.9 Nontraumatic subarachnoid hemorrhage, unspecified (principal); S01.511A Laceration without foreign body of lip, initial encounter; R07.9 Chest pain, unspecified; E11.9 Type 2 diabetes mellitus without complications; I10 Essential (primary) hypertension; G47.33 Obstructive sleep apnea (adult) (pediatric); Z91.14 Patient's other noncompliance with medication regimen; Z79.84 Long term (current) use of oral hypoglycemic drugs; Z79.899 Other long term (current) drug therapy; Z88.2 Allergy status to sulfonamides; W01.0XXA Fall on same level from slipping, tripping and stumbling without subsequent striking against object, initial encounter
CPT/HCPCS: 99285; 96374; 36415; 80053; 85025; 85610; 85730; 71046; 72125; 70450; C9132

== ENCOUNTER → 2018-10-22 | Outpatient (CLI) | payer MEDICARE ==
--- NOTE | 2018-10-22 12:35 | CT ---
EXAMINATION TYPE: CT brain wo con DATE OF EXAM: 10/22/2018 COMPARISON: Prior CT 10/14/2018 HISTORY: Follow up CVA per patient, subarachnoid hemorrhage. Fall [address] DLP: 1108.4 mGycm Automated exposure control for dose reduction was used. Helical acquisition through the brain. FINDINGS: The previously identified subarachnoid hemorrhage has become less conspicuous the right frontal regio n. There is no hydrocephalus. Calvarium is intact. Paranasal sinuses and mastoid air cells are unrema rkable. White matter low-attenuation shows a stable appearance likely due to chronic small vessel isc hemia. There are cerebral vascular calcifications. IMPRESSION: SOME IMPROVEMENT IN THE CONSPICUITY OF THE PATIENT'S SUBARACHNOID HEMORRHAGE.
== END | disposition home or self-care (01) ==
LOC: RADCTMAIN 12:06
PROVIDERS: ATTEND Internal Medicine
DX: I60.9 Nontraumatic subarachnoid hemorrhage, unspecified (principal)
CPT/HCPCS: 70450

== ENCOUNTER → 2018-12-19 | Outpatient (CLI) | payer MEDICARE ==
[2018-12-19 16:15] LABS: Hemoglobin A1C 5.8 % (4.0-6.0)
[2018-12-19 17:02] LABS: African American GFR (CKD) 107.8 (60.0-200.0); Albumin 4.6 g/dL (3.80-4.90); Albumin/Globulin Ratio 2.56 (1.60-3.17); Anion Gap 8.4 mmol/L (4.00-12.00); Calcium 9.6 mg/dL (8.7-10.3); Carbon Dioxide 26.6 mmol/L (21.6-31.8); Chol/HDL Ratio 3.23; Globulin 1.8 g/dL (1.6-3.3); LDL Cholesterol,Calculated 61.4 mg/dL (0.0-131.0); Potassium 4.5 mmol/L (3.5-5.5); Total Bilirubin 0.6 mg/dL (0.2-1.2); Total Protein 6.4 g/dL (6.2-8.2); VLDL Calculation 27.6 mg/dL (5.00-40.00)
== END | disposition home or self-care (01) ==
LOC: LABWHC1 09:42
PROVIDERS: ATTEND Internal Medicine
DX: E78.2 Mixed hyperlipidemia (principal); E11.9 Type 2 diabetes mellitus without complications; E55.9 Vitamin D deficiency, unspecified
CPT/HCPCS: 36415; 80053; 80061; 82306; 83036

== ENCOUNTER → 2019-04-12 | Outpatient (CLI) | payer MEDICARE ==
[2019-04-12 09:56] LABS: Basophils % (A) 0 %; Eosinophils # (A) 0.2 k/uL (0-0.7); Eosinophils % (A) 2 %; HCT 41.6 % (34.0-46.0); HGB 14.2 gm/dL (11.4-16.0); Lymphocytes # (A) 3.5 k/uL (1.0-4.8); Lymphocytes % (A) 46 %; MCHC 34.1 g/dL (31.0-37.0); MCV 90.7 fL (80.0-100.0); Mean Platelet Volume 7.8; Monocytes # (A) 0.2 k/uL (0-1.0); Monocytes % (A) 3 %; Neutrophils # (A) 3.5 k/uL (1.3-7.7); Neutrophils % (A) 46 %; Platelet Count 208 k/uL (150-450); RBC 4.58 m/uL (3.80-5.40); RDW 13.5 % (11.5-15.5); WBC 7.5 k/uL (3.8-10.6)
[2019-04-12 16:43] LABS: African American GFR (CKD) 101.7 (60.0-200.0); Albumin 4.9 g/dL (3.80-4.90); Albumin/Globulin Ratio 2.33 (1.60-3.17); Anion Gap 10.7 mmol/L (4.00-12.00); BUN/Creat Ratio 24.29 Ratio (12.00-20.00); Calcium 10.1 mg/dL (8.7-10.3); Carbon Dioxide 27.3 mmol/L (21.6-31.8); Chol/HDL Ratio 3.68; Globulin 2.1 g/dL (1.6-3.3); LDL Cholesterol,Calculated 56.6 mg/dL (0.0-131.0); Non-African American GFR(CKD) 87.8 (60.0-200.0); Potassium 4.2 mmol/L (3.5-5.5); Total Bilirubin 0.5 mg/dL (0.3-1.2); VLDL Calculation 42.4 mg/dL (5.00-40.00)
[2019-04-12 16:50] LABS: Urine Creatinine 87.6 mg/dL
[2019-04-12 17:15] LABS: Hemoglobin A1C 6.2 % (4.0-6.0)
== END | disposition home or self-care (01) ==
LOC: LABWHC1 09:16
PROVIDERS: ATTEND Internal Medicine
DX: I10 Essential (primary) hypertension (principal); E78.2 Mixed hyperlipidemia; E11.9 Type 2 diabetes mellitus without complications; I48.91 Unspecified atrial fibrillation
CPT/HCPCS: 36415; 80053; 80061; 82043; 82570; 83036; 85025

== ENCOUNTER → 2019-07-28 | Outpatient (CLI) | payer MEDICARE ==
[2019-07-28 18:38] LABS: Chol/HDL Ratio 3.28; LDL Cholesterol,Calculated 63.4 mg/dL (0.0-131.0); VLDL Calculation 27.6 mg/dL (5.00-40.00)
[2019-07-28 22:29] LABS: Hemoglobin A1C 6.1 % (4.0-6.0)
== END | disposition home or self-care (01) ==
LOC: LABWHC1 11:08
PROVIDERS: ATTEND Internal Medicine
DX: E78.2 Mixed hyperlipidemia (principal); E11.9 Type 2 diabetes mellitus without complications
CPT/HCPCS: 36415; 80061; 83036

== ENCOUNTER 2019-08-22 10:59 | Day surgery (SDC) | payer MEDICARE ==
[2019-08-21 11:07] VITALS: BMI 29.1
[~2019-08-22 10:59] MED LIST changes: -HUMAN PROTHROMBIN COMPLX 500 UNIT/16 ML VIAL IV ONE; +LIDOCAINE 1% (10MG/ML) FOR IV START INTRADERMA PRN
[2019-08-22] MEDS: LACTATED RINGERS 1,000 ML IV SCH ×2 (11:48→12:33)
[2019-08-22 11:53] VITALS: RESP 16; TEMP 97
[2019-08-22 11:57] LABS: Glucose,Whole Blood 121 mg/dL (75-99)
[2019-08-22] MEDS ORDERED: PROPOFOL 10 MG/ML 20 ML VIAL IV ONE (12:34)
[2019-08-22] MEDS ORDERED: LIDOCAINE 1% INJ 10MG/ML (20 ML MDV) ONE (12:34)
--- NOTE | 2019-08-22 12:43 | P.PCN ---
Date of Procedure: 08/22/19 Procedure(s) Performed: BRIEF HISTORY: Patient is a 69-year-old, pleasant, white female scheduled for an upper endoscopy as a part of evaluation of epigastric pain and nausea for the last few months duration. Going the passage of Prilosec for several years but she stopped it about 3 years. Currently denies any heartburn. PROCEDURE PERFORMED: Esophagogastroduodenoscopy with biopsy. PREOPERATIVE DIAGNOSIS: Epigastric pain/nausea few months duration. IV sedation per anesthesia. PROCEDURE: After informed consent was obtained, the patient was brought into the endoscopy unit. IV sedation was administered by Anesthesia under continuous monitoring. Initially the Olympus GIF-140 video endoscope was inserted into the mouth. Esophagus intubated without any difficulty. It was gradually advanced into the stomach and duodenum and carefully examined. The bulb and the second part of the duodenum had mild duodenitis and biopsies were done from this area.. The scope at this time was withdrawn to the stomach, adequately insufflated with air, and upon careful examination, mucosa of the antrum, had mild ascites and biopsies were done from this area. The body, cardia and the fundus appeared normal. The scope was then withdrawn into the esophagus. The GE junction was located at 39 cm from the incisors. The esophagus appeared normal. There were no erosions or ulcerations seen and the patient tolerated the procedure well. IMPRESSION: 1. Mild antral gastritis. 2. Scattered erosions in the duodenal bulb consistent with duodenitis RECOMMENDATIONS: The findings of this examination were discussed with the patient as well as a family. She was advised to follow with the biopsy results. She will be on Pepcid as needed for her symptoms. she was educated about diet modification antireflux measures.
[2019-08-22 13:07] VITALS: BP 119/75; PULSE 68
== END 2019-08-22 13:18 | disposition home or self-care (01) ==
LOC: ORWHC2ENDO 10:59
PROVIDERS: ATTEND Internal Medicine Gastroenterology
DX: K29.50 Unspecified chronic gastritis without bleeding (principal); K29.80 Duodenitis without bleeding; I48.91 Unspecified atrial fibrillation; I48.92 Unspecified atrial flutter; I10 Essential (primary) hypertension; E78.5 Hyperlipidemia, unspecified; G47.33 Obstructive sleep apnea (adult) (pediatric); E11.9 Type 2 diabetes mellitus without complications; K21.9 Gastro-esophageal reflux disease without esophagitis; Z88.2 Allergy status to sulfonamides; Z79.899 Other long term (current) drug therapy; Z79.84 Long term (current) use of oral hypoglycemic drugs; Z79.01 Long term (current) use of anticoagulants
CPT/HCPCS: 88305; 43239; J2001; J2704

== ENCOUNTER → 2019-10-30 | Outpatient (CLI) | payer MEDICARE | END | disposition home or self-care (01) | LOC: RADECHMAIN 12:13 | PROVIDERS: ATTEND Internal Medicine | DX: I49.3 Ventricular premature depolarization (principal); R00.0 Tachycardia, unspecified | CPT/HCPCS: 93225; 93226 ==

== ENCOUNTER → 2020-10-01 | Outpatient (CLI) | payer MEDICARE ==
[2020-10-01 18:18] LABS: Basophils # (A) 0.04 X 10*3/uL (0.00-0.10); Basophils % (A) 0.4 %; Eosinophils # (A) 0.14 X 10*3/uL (0.04-0.35); Eosinophils % (A) 1.5 %; HCT 43.8 % (37.2-46.3); HGB 14.7 g/dL (12.0-15.0); Lymphocytes # (A) 4.11 X 10*3/uL (0.90-5.00); Lymphocytes % (A) 44.5 %; MCH 30.3 pg (27.0-32.0); MCHC 33.6 g/dL (32.0-37.0); MCV 90.3 fL (80.0-97.0); Mean Platelet Volume 10.8 fL (9.5-12.2); Monocytes # (A) 0.51 X 10*3/uL (0.20-1.00); Monocytes % (A) 5.5 %; Neutrophils % (A) 47.7 %; Platelet Count 213 X 10*3/uL (140-440); RBC 4.85 X 10*6/uL (4.10-5.20); RDW 14.2 % (11.5-14.5); WBC 9.24 X 10*3/uL (4.50-10.00)
[2020-10-01 20:56] LABS: African American GFR (CKD) 112.9 (60.0-200.0); Albumin 4.6 g/dL (3.80-4.90); Anion Gap 9.7 mmol/L (4.00-12.00); Calcium 9.3 mg/dL (8.7-10.3); Carbon Dioxide 26.3 mmol/L (21.6-31.8); Chol/HDL Ratio 3.18; Globulin 2.3 g/dL (1.6-3.3); LDL Cholesterol,Calculated 42.2 mg/dL (0.0-131.0); Non-African American GFR(CKD) 97.4 (60.0-200.0); Potassium 4.5 mmol/L (3.5-5.5); Total Bilirubin 1.3 mg/dL (0.2-1.2); Total Protein 6.9 g/dL (6.2-8.2); VLDL Calculation 29.8 mg/dL (5.00-40.00)
[2020-10-01 21:49] LABS: Hemoglobin A1C 6.5 % (4.0-6.0)
== END | disposition home or self-care (01) ==
LOC: LABWHC1 11:53
PROVIDERS: ATTEND Nurse Practitioner Adult Health
DX: I10 Essential (primary) hypertension (principal); E78.2 Mixed hyperlipidemia
CPT/HCPCS: 36415; 80053; 80061; 83036; 85025

== ENCOUNTER → 2021-01-14 | Outpatient (CLI) | payer MEDICARE ==
[2021-01-14 19:26] LABS: HCT 43.8 % (37.2-46.3); HGB 13.9 g/dL (12.0-15.0); MCH 29.8 pg (27.0-32.0); MCHC 31.7 g/dL (32.0-37.0); MCV 93.8 fL (80.0-97.0); Mean Platelet Volume 11.1 fL (9.5-12.2); Platelet Count 214 X 10*3/uL (140-440); RBC 4.67 X 10*6/uL (4.10-5.20); RDW 13.6 % (11.5-14.5); WBC 8.89 X 10*3/uL (4.50-10.00)
[2021-01-15 00:14] LABS: ALT 29 U/L (8-44); AST 23 U/L (13-35); African American GFR (CKD) 112.8 (60.0-200.0); Albumin 4.5 g/dL (3.8-4.9); Albumin/Globulin Ratio 2.14 (1.60-3.17); Alkaline Phosphatase 64 U/L (41-126); BUN/Creat Ratio 25.92 Ratio (12.00-20.00); Blood Urea Nitrogen 12.7 mg/dL (9.0-27.0); Carbon Dioxide 20.8 mmol/L (20.0-27.5); Chloride 104 mmol/L (96-109); Globulin 2.1 g/dL (1.6-3.3); Glucose 150 mg/dL (70-110); Non-African American GFR(CKD) 97.3 (60.0-200.0); Potassium 4.2 mmol/L (3.5-5.5); Sodium 142 mmol/L (135-145); Total Protein 6.6 g/dL (6.2-8.2)
[2021-01-15 00:44] LABS: Chol/HDL Ratio 2.53 Ratio; LDL Cholesterol,Calculated 35.9 mg/dL (0.0-131.0)
[2021-01-15 02:39] LABS: Folate, Serum >20.00 ng/mL (4.40-31.00)
== END | disposition home or self-care (01) ==
LOC: LABWHC1 10:54
PROVIDERS: ATTEND Internal Medicine Interventional Cardiology
DX: I10 Essential (primary) hypertension (principal); E78.2 Mixed hyperlipidemia; E11.9 Type 2 diabetes mellitus without complications; E55.9 Vitamin D deficiency, unspecified
CPT/HCPCS: 36415; 80053; 80061; 82043; 82306; 82570; 82607; 82746; 83036; 85027

== ENCOUNTER → 2022-02-03 | Outpatient (CLI) | payer MEDICARE ==
--- NOTE | 2022-02-03 12:07 | BD ---
EXAMINATION TYPE: Axial Bone Density DATE OF EXAM: 02/03/2022 COMPARISON: 10/23/2016 CLINICAL HISTORY: 72 years year old Female. ICD-10 CODE: M81.0 AGE-RELATED OSTEOPOROSIS W/O CURRENT PATHOLOGICAL FIND Height: 63.7 IN Weight: 178 LBS RISK FACTORS HISTORY OF: Active: YES Postmenopausal woman: AGE 57 Take estrogen and/or progesterone medications: NOT NOW How lon + YEARS MEDICATIONS: Additional Medications: VIT D, OMEPRAZOLE, BLOOD PRESSURE, DIABETES MEDS, CHOLESTEROL MEDS, EXAM MEASUREMENTS: Bone mineral densitometry was performed using the Workspace System. Bone mineral density as measured about the Lumbar spine is: ----- L1-L4(G/cm2): 1.066 T Score Values are as follows: ----- L1: -0.9 ----- L2: -0.8 ----- L3: -0.9 ----- L4: -1.2 ----- L1-L4: -1.0 Bone mineral density has: Increased 1.5% since study of: 10/23/2016 Bone mineral density about the R hip (g/cm2): 0.759 Bone mineral density about the L hip (g/cm2): 0.780 T Score values are as follows: -----R Neck: -2.0 -----L Neck: -1.9 -----R Total: -1.6 -----L Total: -1.7 Bone mineral density has: Decreased -9.5% since study of: 10/23/2016 FRAX%s: The graph provided illustrates a 12.4 chance for a major osteoporotic fx and a 2.8 chance for the hips probability for fx in 10 years time. IMPRESSION: Osteopenia (T Score between -2.5 and -1). There is slightly increased risk of fracture and the patient may be considered for treatment. Re-Screen 2-5 years. NOTE: T-SCORE=SD OF THE YOUNG ADULT MEAN.
--- NOTE | 2022-02-06 12:50 | MM ---
Reason for Exam: Screening (asymptomatic). Last mammogram was performed 3 year(s) and 7 month(s) ago. Patient History: Menarche at age 11. First Full-Term at age 19. Postmenopausal. Estrogen for 20 years from age 44 until age 64. Progesterone for 20 years from age 44 until age 64. Benign Stereotactic Core Biopsy on the left side. 2013, Benign Excisional Biopsy on the left side. Risk Values: Elda 5 year model risk: 2.4%. NCI Lifetime model risk: 5.8%. Prior Study Comparison: 07/22/2013 Screening Mammogram, [facility]. 10/23/2016 Bilateral Diagnostic Mammogram, [facility]. 07/03/2018 Bilateral Screening Mammogram, [facility]. Tissue Density: The breast tissue is heterogeneously dense. This may lower the sensitivity of mammography. Findings: Analyzed By CAD. Benign bilateral calcifications are redemonstrated. Microclip posterior left breast from prior biopsy. Areas of asymmetric density remain unchanged. However, a small area of grouped microcalcifications central posterior right breast are increasing. Further magnification views are recommended. Overall Assessment: Incomplete: need additional imaging evaluation, BI-RAD 0 Management: Special View Mammogram of the right breast. Including mag CC, mag lateral, and 3-D lateral views for the posterior central grouped microcalcifications. [facility] will attempt to contact patient to return for supplemental views and ultrasound if indicated. Electronically signed and approved by: Isidra Kapoor M.D. Radiologist
== END | disposition home or self-care (01) ==
LOC: RADBDWWP 11:05
PROVIDERS: ATTEND Internal Medicine Geriatric Medicine
DX: Z12.31 Encounter for screening mammogram for malignant neoplasm of breast (principal); M81.0 Age-related osteoporosis without current pathological fracture; M85.89 Other specified disorders of bone density and structure, multiple sites; Z78.0 Asymptomatic menopausal state
CPT/HCPCS: 77063; 77067; 77080

== ENCOUNTER → 2022-02-15 | Outpatient (CLI) | payer MEDICARE ==
--- NOTE | 2022-02-15 10:57 | MM ---
Reason for Exam: Additional evaluation requested from abnormal screening. Last screening mammogram was performed less than 1 month ago. Patient History: Menarche at age 11. First Full-Term at age 19. Postmenopausal. Estrogen for 20 years from age 44 until age 64. Progesterone for 20 years from age 44 until age 64. Benign Stereotactic Core Biopsy on the left side. 2013, Benign Excisional Biopsy on the left side. Risk Values: Elda 5 year model risk: 2.4%. NCI Lifetime model risk: 5.8%. Prior Study Comparison: 03/13/2012 Screening Mammogram, [facility]. 07/22/2013 Screening Mammogram, [facility]. 10/23/2016 Bilateral Diagnostic Mammogram, [facility]. 07/03/2018 Bilateral Screening Mammogram, [facility]. 02/03/2022 Bilateral MG 3D screening mammo w/cad, [facility]. Tissue Density: Right: There are scattered fibroglandular densities. Findings: Analyzed By CAD. Redemonstration of suspicious grouped calcifications in the right breast posterior depth approximately 8.4 cm from the nipple in the posterior nipple line on both ML and CC imaging. Overall Assessment: Suspicious, BI-RAD 4 Management: Stereotactic Core Biopsy of the right breast. A clinical breast exam by your physician is recommended on an annual basis and results should be correlated with mammographic findings. This exam should not preclude additional follow-up of suspicious palpable abnormalities. Results were given to the patient verbally at the time of exam. Electronically signed and approved by: Topher Rios DO
== END | disposition home or self-care (01) ==
LOC: RADMAMWWP 10:17
PROVIDERS: ATTEND Internal Medicine Geriatric Medicine
DX: R92.8 Other abnormal and inconclusive findings on diagnostic imaging of breast (principal); Z78.0 Asymptomatic menopausal state
CPT/HCPCS: 77065; G0279; 77061

== ENCOUNTER → 2022-02-27 | Day surgery (SDC) | payer MEDICARE ==
--- NOTE | 2022-03-03 09:42 | MM ---
Risk Values: Elda 5 year model risk: 2.4%. NCI Lifetime model risk: 5.8%. Prior Study Comparison: 07/03/2018 Bilateral Screening Mammogram, [facility]. 02/03/2022 Bilateral MG 3D screening mammo w/cad, [facility]. 02/15/2022 Right MG 3D work up w/cad RT, [facility]. Pathology Description: Approach: Oblique Needle Type: Eviva Cores: 6 Gauge: 9 The procedure of stereotactic guided core biopsy was explained to the patient. Benefits, alternatives, and risks were discussed. An informed consent was then obtained. The shortness pathway for biopsy was attempted. Lesion is fairly central. A cranial approach was chosen. I performed the localization, then performed the remainder of the procedure. Overlying skin is cleansed with Betadine. Lidocaine was used as anesthetic into the skin and deeper tissue. Lidocaine with epinephrine is used as anesthetic into the deeper tissue during sampling. A vacuum assisted biopsy gun was used to obtain multiple core samples. The patient tolerated the procedure well without any immediate complication. The patient was kept in the radiology department for short stay after the procedure and then discharged home in stable condition. Targeted calcifications are identified in specimen mammogram. Post biopsy mammogram shows the clip to appear in satisfactory position relative to the targeted area of concern on the preprocedure images. Impression: SUCCESSFUL, UNCOMPLICATED STEREOTACTIC GUIDED CORE BIOPSY OF AREA OF CONCERN IN THE RIGHT BREAST. PATHOLOGY STATUS: Results pending Intermediate index of suspicion noted at time of procedure. Pathology Results: Result: Benign, Fibroadenomatoid hyperplasia. RIGHT BREAST, STEREOTACTIC NEEDLE CORE BIOPSY: Fibroadenomatoid hyperplasia with calcifications and background fibrocystic changes. Overall Assessment: Benign Management: Diagnostic Mammogram of the right breast in 6 months. Electronically signed and approved by: Timothy Chiu M.D.
== END ==
LOC: RADMAMWWP 09:47
PROVIDERS: ATTEND Surgery
DX: N62 Hypertrophy of breast (principal); R92.8 Other abnormal and inconclusive findings on diagnostic imaging of breast
CPT/HCPCS: 88305; 19081; A4648

== ENCOUNTER → 2023-11-22 | Outpatient (CLI) | payer MEDICARE ==
--- NOTE | 2023-11-23 10:01 | MM ---
Reason for Exam: Screening (asymptomatic). Last mammogram was performed 1 year(s) and 10 month(s) ago. Patient History: Menarche at age 11. First Full-Term at age 19. Postmenopausal. Previous Hyperplasia w/o Atypia at age 72. Estrogen for 20 years from age 44 until age 64. Progesterone for 20 years from age 44 until age 64. 02/27/2022, Benign MG stereo VAD BX RT on the right side. Benign Stereotactic Core Biopsy on the left side. 2013, Benign Excisional Biopsy on the left side. Risk Values: Elda 5 year model risk: 2.4%. NCI Lifetime model risk: 5.5%. Prior Study Comparison: 07/03/2018 Bilateral Screening Mammogram, [facility]. 02/03/2022 Bilateral MG 3D screening mammo w/cad, [facility]. 02/15/2022 Right MG 3D work up w/cad RT, [facility]. Tissue Density: There are scattered areas of fibroglandular density. Findings: Analyzed By CAD. Right breast: There is no suspicious group of microcalcifications or new suspicious mass. Benign-appearing calcifications right breast. Left breast: There is no suspicious group of microcalcifications or new suspicious mass. Benign-appearing calcifications left breast. Overall Assessment: Benign, BI-RAD 2 Management: Screening Mammogram of both breasts in [address] [facility] will attempt to contact patient to return for supplemental views and ultrasound if indicated. Patient should continue monthly self-breast exams. A clinical breast exam by your physician is recommended on an annual basis. This exam should not preclude additional follow-up of suspicious palpable abnormalities. Note on Elda scores and lifetime risk: 1. A Elda score greater than 3% is considered moderate risk. If this is the case, consider specialist referral to assess eligibility for a risk reducing agent. 2. If overall lifetime risk for the development of breast cancer is 20% or higher, the patient may qualify for future screening with alternating mammogram and breast MRI. [facility], , 11/23/2023 9:54 AM. Electronically signed and approved by: Topher Rios DO
== END | disposition home or self-care (01) ==
LOC: RADMAMWWP 12:17
PROVIDERS: ATTEND Internal Medicine Geriatric Medicine
CPT/HCPCS: 77063; 77067